=== PATIENT | male | born 1945 | race Caucasian/White ===

== ENCOUNTER 2023-02-21 18:35 | Inpatient (IN) | payer OTHER ==
[~2023-02-21] VITALS: Ht 175.3 cm; Wt 74.7 kg
[2023-02-21 19:36] LABS: Basophils # (auto) 0 10 ^3/uL (0-0.2); Basophils % (auto) 0.8 % (0.0-2.0); Eosinophils # (auto) 0.4 10 ^3/uL (0-0.8); Eosinophils % (auto) 7.6 % (0.0-7.0); Hematocrit 32.3 % (41.0-53.0); Lymphocytes # (auto) 0.8 10 ^3/uL (0.4-5.4); Lymphocytes % (auto) 15.1 % (10.0-50.0); Mean Corpuscular Hemoglobin 32.1 pg (28.0-32.0); Mean Corpuscular Volume 94.6 fL (80.0-100.0); Monocytes # (auto) 0.5 10 ^3/uL (0-1.3); Monocytes % (auto) 9.3 % (0.0-12.0); Neutrophils # (auto) 3.4 10 ^3/uL (1.6-8.6); Neutrophils % (auto) 67.2 % (37.0-80.0); Nucleated Red Blood Cells % 0.1 %; Red Blood Cells 3.41 10^6/uL (4.5-5.90); Red Cell Distribution Width 12.7 % (11.8-14.3)
[2023-02-21 19:49] LABS: Albumin 3.9 g/dL (3.4-5.0); Calcium 9.2 mg/dL (8.5-10.1)
[2023-02-21 19:52] LABS: BUN/Creatinine Ratio 19.4 (10.0-20.0); Bilirubin, Total 0.5 mg/dL (0.2-1.0); Total Protein 6.8 g/dL (6.4-8.2)
[2023-02-21 20:12] LABS: Potassium 5.9 mmol/L (3.5-5.1)
[2023-02-21] MEDS ORDERED: BUDESONIDE (INHALATION) 0.5 MG/2 ML NEB NEB ONE (20:30)
[2023-02-21] MEDS ORDERED: ALBUTEROL SULF 2.5 MG/0.5ML(0.5%) NEB SOLN NEB ONE (20:30)
[2023-02-21 21:26] LABS: INR 1.15 (0.9-1.15)
[2023-02-22 02:22] LABS: Urine Bacteria NONE SEEN /hpf (None Seen); Urine Blood Negative /uL (Negative); Urine Hyaline Cast FEW /lpf (0 - 2); Urine Specific Gravity 1.015 (1.001-1.035); Urine WBC 1 /hpf (0 - 3)
[2023-02-22] MEDS ORDERED: CALCIUM GLUC 1,000mg/50ml-NS 50 ML IV ONE (02:30)
[2023-02-22] MEDS ORDERED: FUROSEMIDE 40 MG/4 ML VIAL IV ONE (02:30)
[2023-02-22] MEDS ORDERED: DOCUSATE SOD 100 MG CAP PO PRN (03:15)
[2023-02-22] MEDS ORDERED: HYDROcodone-ACET 5/325MG TAB PO PRN (03:15)
[2023-02-22] MEDS ORDERED: ONDANSETRON HCL 4 MG/2 ML VIAL IV PRN (03:15)
[2023-02-22] MEDS ORDERED: ACETAMINOPHEN 325 MG TAB PO PRN (03:15)
[2023-02-22 03:59] VITALS: BP 117/54
[2023-02-22 04:50] LABS: Basophils # (auto) 0 10 ^3/uL (0-0.2); Basophils % (auto) 0.6 % (0.0-2.0); Eosinophils # (auto) 0.4 10 ^3/uL (0-0.8); Eosinophils % (auto) 7.2 % (0.0-7.0); Hematocrit 29.8 % (41.0-53.0); Hemoglobin 10.6 g/dL (13.5-17.5); Lymphocytes # (auto) 1.2 10 ^3/uL (0.4-5.4); Lymphocytes % (auto) 23.4 % (10.0-50.0); Mean Corpuscular Hemoglobin 32.5 pg (28.0-32.0); Mean Corpuscular Hgb Conc. 35.4 g/dL (32.0-36.0); Mean Corpuscular Volume 91.6 fL (80.0-100.0); Monocytes # (auto) 0.4 10 ^3/uL (0-1.3); Monocytes % (auto) 7.8 % (0.0-12.0); Red Blood Cells 3.26 10^6/uL (4.5-5.90); Red Cell Distribution Width 12.5 % (11.8-14.3); White Blood Cell 4.9 10^3/uL (4.4-10.8)
[2023-02-22 05:06] LABS: Albumin 3.9 g/dL (3.4-5.0); BUN/Creatinine Ratio 21.7 (10.0-20.0); Calcium 9.3 mg/dL (8.5-10.1); Potassium 4.8 mmol/L (3.5-5.1)
[2023-02-22 05:08] LABS: Bilirubin, Total 0.6 mg/dL (0.2-1.0)
[2023-02-22] MEDS ORDERED: InsuLIN REG 1unit/0.01ml Soln (100units/ml) IV ONE (05:45)
[2023-02-22] MEDS ORDERED: DEXTROSE (50%) 50ML SYRG IV ONE (05:45)
[2023-02-22] MEDS ORDERED: ALBUTEROL SULF 2.5 MG/0.5ML(0.5%) NEB SOLN NEB ONE (05:45)
[2023-02-22] MEDS ORDERED: SODIUM BICARBONATE 8.4% INJ 50ML SYRINGE IV ONE (05:45)
[2023-02-22] MEDS ORDERED: MORPHINE SULFATE INJ 2 MG/ml SYRG IV PRN (06:00)
[2023-02-22] MEDS ORDERED: NITROGLYCERIN 0.4 MG SL TAB SL PRN (06:00)
[2023-02-22] MEDS: SODIUM CHLORIDE 0.9% 1,000 ML IV SCH ×2 (07:46→17:22)
[2023-02-22] MEDS ORDERED: FUROSEMIDE 20 MG/2 ML VIAL IV SCH (10:00)
[2023-02-22] MEDS ORDERED: FAMOTIDINE (10MG/ML) 2ML VL IV SCH (10:00)
[2023-02-22] MEDS: ALBUTEROL SULF 2.5 MG/0.5ML(0.5%) NEB SOLN NEB PRN ×2 (10:21→21:36)
[2023-02-22] MEDS: ASPirin 81 mg TAB PO SCH (11:00)
[2023-02-22 14:49] VITALS: BP 134/65
[2023-02-22] MEDS ORDERED: IBUP800T26 PO (15:07)
[2023-02-22] MEDS ORDERED: LOSA-39 PO ×2 (15:07→18:46)
[2023-02-22] MEDS ORDERED: ALBU0.08 NEB (15:07)
[2023-02-22] MEDS ORDERED: TERA1CAP33 PO ×2 (15:07→18:46)
[2023-02-22] MEDS ORDERED: LORA-655 (15:07)
[2023-02-22] MEDS ORDERED: HYDR1TAB97 PO (15:07)
[2023-02-22] MEDS ORDERED: ALBU108A5 INH (15:07)
[2023-02-22] MEDS ORDERED: METO25TA93 PO (15:07)
[2023-02-22] MEDS ORDERED: LEV88T PO (15:07)
[2023-02-22] MEDS ORDERED: ATOR10TA52 PO (15:07)
[2023-02-22] MEDS ORDERED: OMEP-260 PO (15:07)
[2023-02-22] MEDS ORDERED: SPIR50TA5 PO ×2 (15:07→18:46)
[2023-02-22] MEDS ORDERED: TIOTCAP IN (15:10)
[2023-02-22 16:49] VITALS: BP 134/65
[2023-02-22] MEDS: Ensure Pudding Vanilla 4 oz Cup PO SCH (18:11)
[2023-02-22] MEDS ORDERED: METO25TA5 PO (18:46)
[2023-02-22] MEDS ORDERED: SUMA100T15 PO (19:39)
[2023-02-22 20:00] VITALS: BP 118/50
[2023-02-22 22:00] VITALS: BP 118/50
[2023-02-23] MEDS: ALBUTEROL SULF 2.5 MG/0.5ML(0.5%) NEB SOLN NEB PRN (03:14)
[2023-02-23 05:00] VITALS: BP 119/60
[2023-02-23 05:42] LABS: Basophils # (auto) 0.1 10 ^3/uL (0-0.2); Basophils % (auto) 0.9 % (0.0-2.0); Eosinophils # (auto) 0.3 10 ^3/uL (0-0.8); Eosinophils % (auto) 3.1 % (0.0-7.0); Hematocrit 37.7 % (41.0-53.0); Lymphocytes # (auto) 1.4 10 ^3/uL (0.4-5.4); Lymphocytes % (auto) 16.2 % (10.0-50.0); Mean Corpuscular Hemoglobin 31.3 pg (28.0-32.0); Mean Corpuscular Hgb Conc. 34.4 g/dL (32.0-36.0); Mean Corpuscular Volume 90.9 fL (80.0-100.0); Monocytes # (auto) 1.1 10 ^3/uL (0-1.3); Monocytes % (auto) 12.1 % (0.0-12.0); Neutrophils % (auto) 67.7 % (37.0-80.0); Nucleated Red Blood Cells % 0.7 %; Red Blood Cells 4.14 10^6/uL (4.5-5.90); Red Cell Distribution Width 15.6 % (11.8-14.3); White Blood Cell 8.8 10^3/uL (4.4-10.8)
[2023-02-23 05:52] LABS: Albumin 3.6 g/dL (3.4-5.0); BUN/Creatinine Ratio 3.9 (10.0-20.0); Calcium 9.2 mg/dL (8.5-10.1); Potassium 4.6 mmol/L (3.5-5.1)
[2023-02-23 05:55] LABS: Bilirubin, Total 0.6 mg/dL (0.2-1.0); Total Protein 8.2 g/dL (6.4-8.2)
[2023-02-23] MEDS: SODIUM CHLORIDE 0.9% 1,000 ML IV SCH ×2 (07:30→17:30)
[2023-02-23] MEDS ORDERED: LIDOCAINE 2% JELLY 11ml (GLYDO) UR ONE (07:45)
[2023-02-23 08:30] VITALS: BP 142/70
[2023-02-23] MEDS: ALPRAZolam 0.5 MG TAB PO PRN ×2 (08:34→16:55)
[2023-02-23] MEDS: Ensure Pudding Vanilla 4 oz Cup PO SCH ×3 (09:14→16:55)
[2023-02-23] MEDS ORDERED: FAMOTIDINE (10MG/ML) 2ML VL IV SCH (10:00)
[2023-02-23] MEDS: ASPirin 81 mg TAB PO SCH (10:00)
[2023-02-23 12:30] VITALS: BP 154/75
[2023-02-23 13:11] LABS: BUN/Creatinine Ratio 20.2 (10.0-20.0); Calcium 9.1 mg/dL (8.5-10.1); Potassium 5.1 mmol/L (3.5-5.1)
[2023-02-23 17:18] VITALS: BP 110/70
[2023-02-23] MEDS ORDERED: TAMSULOSIN HYDROCHLORIDE 0.4 MG CAP PO SCH (18:00)
[2023-02-23] MEDS ORDERED: FINASTERIDE 5 MG TAB PO SCH (18:00)
[2023-02-23 22:00] VITALS: BP 135/65
[2023-02-24] MEDS: ALBUTEROL SULF 2.5 MG/0.5ML(0.5%) NEB SOLN NEB PRN ×2 (00:43→16:25)
[2023-02-24] MEDS: SODIUM CHLORIDE 0.9% 1,000 ML IV SCH ×2 (03:30→13:30)
[2023-02-24 05:00] VITALS: BP 110/52
[2023-02-24 06:22] LABS: Calcium 9.1 mg/dL (8.5-10.1); Potassium 4.9 mmol/L (3.5-5.1)
[2023-02-24 06:25] LABS: BUN/Creatinine Ratio 17.6 (10.0-20.0)
[2023-02-24 08:00] VITALS: BP 162/44
[2023-02-24] MEDS: Ensure Pudding Vanilla 4 oz Cup PO SCH ×2 (08:00→11:47)
[2023-02-24 09:00] VITALS: BP 102/44
[2023-02-24] MEDS: ASPirin 81 mg TAB PO SCH (09:34)
[2023-02-24] MEDS: ALPRAZolam 0.5 MG TAB PO PRN (09:38)
[2023-02-24 12:06] LABS: Hepatitis C Antibody Negative (Negative)
[2023-02-24 13:00] VITALS: BP 118/63
[2023-02-24] MEDS ORDERED: FINA5TAB4 PO (13:44)
[2023-02-24] MEDS ORDERED: TAM04C PO (13:44)
[2023-02-24 17:07] VITALS: BP 126/56
[2023-02-24 17:44] VITALS: BP 126/56
[2023-02-25] MEDS ORDERED: CIPR500T4 PO (12:37)
== END 2023-02-24 17:55 | disposition home or self-care (01) | DRG 683 ==
LOC: ER 18:35 → TELE 02-22 05:59 → TELE-EAST 02-22 14:47
PROVIDERS: ADMIT Nurse Practitioner Family; ATTEND Hospitalist
DX: N17.9 Acute kidney failure, unspecified (principal); N13.8 Other obstructive and reflux uropathy; E87.5 Hyperkalemia; J44.9 Chronic obstructive pulmonary disease, unspecified; N40.1 Benign prostatic hyperplasia with lower urinary tract symptoms; I95.9 Hypotension, unspecified; N20.0 Calculus of kidney; I10 Essential (primary) hypertension; Z20.822 Contact with and (suspected) exposure to COVID-19
CPT/HCPCS: 36415; 71045; 76775; 80048; 80053; 81001; 83605; 83880; 84484; 85025; 85379; 85610; 85730; 86803; 87040; 87340; 87426; 93005; 94640; 97116; 97163; 97530; G0378; J3490

== ENCOUNTER 2023-02-25 10:33 | Emergency (ER) | payer BC, OTHER ==
[~2023-02-25] VITALS: Ht 175.3 cm; Wt 71.3 kg
[~2023-02-25 10:33] MED LIST: ALBU0.08 NEB; ALBU108A5 INH; ATOR10TA52 PO; FINA5TAB4 PO; IBUP800T26 PO; LEV88T PO; LOSA-39 PO; METO25TA5 PO; SUMA100T15 PO; TAM04C PO; TERA1CAP33 PO; TIOTCAP IN
[2023-02-25 11:39] VITALS: BP 98/39
[2023-02-25] MEDS ORDERED: CIPR500T4 PO (12:37)
== END 2023-02-25 13:06 | disposition home or self-care (01) ==
LOC: ER 10:33
DX: T83.038A Leakage of other urinary catheter, initial encounter (principal); N39.0 Urinary tract infection, site not specified; I10 Essential (primary) hypertension; J44.9 Chronic obstructive pulmonary disease, unspecified; Z79.899 Other long term (current) drug therapy; Z88.6 Allergy status to analgesic agent
CPT/HCPCS: 51702

== ENCOUNTER → 2023-02-26 | Emergency (ER) | payer BC, OTHER ==
[~2023-02-26] MED LIST changes: +CIPR500T4 PO
== END | disposition left against medical advice (07) ==
LOC: ER 20:00
DX: T83.098A Other mechanical complication of other urinary catheter, initial encounter (principal); Z53.21 Procedure and treatment not carried out due to patient leaving prior to being seen by health care provider

== ENCOUNTER 2023-09-17 12:38 | Inpatient (IN) | payer BC, OTHER ==
[~2023-09-17] VITALS: Ht 175.3 cm; Wt 82.0 kg
[~2023-09-17 12:38] MED LIST changes: +IBUP-1455 PO; -IBUP800T26 PO; -LEV88T PO; +LEVO-177 PO; -LOSA-39 PO; +LOSA100T58 PO; -TAM04C PO; +TAMS-35 PO
[2023-09-17 12:50] VITALS: BP 163/69; RESP 18; O2SAT 93
[2023-09-17] MEDS ORDERED: ASPirin 325 MG TAB PO ONE (13:15)
[2023-09-17 13:32] LABS: Basophils # (auto) 0 10 ^3/uL (0-0.2); Basophils % (auto) 0.6 % (0.0-2.0); Eosinophils # (auto) 0.4 10 ^3/uL (0-0.8); Eosinophils % (auto) 5.5 % (0.0-7.0); Hematocrit 37.9 % (41.0-53.0); Hemoglobin 12.4 g/dL (13.5-17.5); Lymphocytes # (auto) 0.4 10 ^3/uL (0.4-5.4); Lymphocytes % (auto) 5.4 % (10.0-50.0); Mean Corpuscular Hemoglobin 30.7 pg (28.0-32.0); Mean Corpuscular Hgb Conc. 32.7 g/dL (32.0-36.0); Monocytes # (auto) 0.4 10 ^3/uL (0-1.3); Monocytes % (auto) 6.3 % (0.0-12.0); Neutrophils # (auto) 5.6 10 ^3/uL (1.6-8.6); Neutrophils % (auto) 82.2 % (37.0-80.0); Red Blood Cells 4.03 10^6/uL (4.5-5.90); Red Cell Distribution Width 14.9 % (11.8-14.3); White Blood Cell 6.8 10^3/uL (4.4-10.8)
[2023-09-17 13:36] VITALS: PULSE 90
[2023-09-17 13:36] LABS: Alanine Aminotransferase 24 U/L (7-40); Albumin 4.6 g/dL (3.2-4.8); Alkaline Phosphatase 61 U/L (46-116); Anion Gap 7 (5-15); Aspartate Aminotransferase 27 U/L (13-40); BUN/Creatinine Ratio 9.5 (10.0-20.0); Blood Urea Nitrogen 15 mg/dL (9-23); Calcium 9.4 mg/dL (8.5-10.1); Carbon Dioxide 30 mmol/L (20-30); Chloride 104 mmol/L (98-107); Glucose 119 mg/dL (74-106); Potassium 4.4 mmol/L (3.5-5.1); Sodium 141 mmol/L (136-145)
[2023-09-17 13:37] LABS: Bilirubin, Total 1.2 mg/dL (0.2-1.0); Total Protein 6.8 g/dL (5.7-8.2)
[2023-09-17 13:54] LABS: INR 1.18 (0.9-1.15); Partial Thromboplastin Time 27.6 SEC (24.5-34.5); Prothrombin Time 12.3 sec (9.3-11.8)
[2023-09-17] MEDS ORDERED: MORPHINE SULFATE INJ 2 MG/ml SYRG IV PRN (19:30)
[2023-09-17] MEDS ORDERED: ACETAMINOPHEN 325 MG TAB PO PRN (19:30)
[2023-09-17] MEDS ORDERED: DOCUSATE SOD 100 MG CAP PO PRN (19:30)
[2023-09-17] MEDS ORDERED: NITROGLYCERIN 0.4 MG SL TAB SL PRN (19:30)
== END 2023-09-17 20:35 | disposition left against medical advice (07) | DRG 313 ==
LOC: ER 12:38 → TELE 19:20
PROVIDERS: ADMIT Nurse Practitioner Family; ATTEND Nurse Practitioner Family
DX: R07.9 Chest pain, unspecified (principal); J44.9 Chronic obstructive pulmonary disease, unspecified; N40.0 Benign prostatic hyperplasia without lower urinary tract symptoms; I10 Essential (primary) hypertension; Z79.899 Other long term (current) drug therapy
CPT/HCPCS: 36415; 70450; 71045; 80053; 83605; 84484; 85025; 85610; 85730; 87040; 93005; G0378

== ENCOUNTER 2025-04-29 01:20 | Inpatient (IN) | payer BC, OTHER ==
[2025-04-29] VITALS (17 sets, daily range): BP systolic 122–159; BP diastolic 65–73; PULSE 54–76; RESP 10–18; TEMP 97–98.9; O2SAT 93–100
[~2025-04-29] VITALS: Ht 175.3 cm; Wt 85.5 kg
[~2025-04-29 01:20] MED LIST changes: +LOSA-535 PO; -LOSA100T58 PO; -TERA1CAP33 PO; +TERA1CAP52 PO
[2025-04-29] MEDS: SODIUM CHLORIDE 0.9% 1,000 ML IV ONE ×2 (01:30→03:15)
[2025-04-29] MEDS: MECLIZINE HCL 25 MG TAB PO ONE (01:30)
--- NOTE | 2025-04-29 01:41 | ED.PDOC ---
History of Present Illness HPI Comments 79-year-old male who came to ER via EMS for dizziness. Patient has history of hypertension, COPD and vertigo. At about 12 midnight, started having dizziness, progressively worsening, associated with photophobia, nausea and vomiting. Denies any headaches or fever. Blood pressure upon arrival was 164/82 mm Hg, blood sugar of 119. Chief Complaint: Dizziness Time Seen by MD: 01:40 Primary Care Provider: NAOMY Reviewed Notes: Pier Hand Helper Notes Allergies: Coded Allergies: NO KNOWN ALLERGIES (Unverified , 02/21/23) Home Meds Active Scripts Ciprofloxacin Hcl (Ciprofloxacin Hcl) 500 Mg Tab, 500 MG PO BID for 7 Days, #14 TAB 0 Refills Prov:VENICE PHAM CONSTRUCTION SITE MANAGER 02/25/23 Finasteride (Finasteride) 5 Mg Tab, 1 TAB PO DAILY, #60 TAB 1 Refill Prov:ESTEBAN DE LA PAZ MD 02/24/23 Tamsulosin Hcl (Flomax) 0.4 Mg Cap, 1 CAP PO QPM, #60 CAP Prov:ESTEBAN DE LA PAZ MD 02/24/23 Reported Medications Sumatriptan Succinate (Sumatriptan Succinate) 100 Mg Tab, 100 MG PO Q4HP, MG 02/22/23 Terazosin Hcl (Terazosin Hcl) 1 Mg Cap, 1 MG PO HS for 30 Days, MG 02/22/23 Metoprolol Tartrate (Metoprolol Tartrate) 25 Mg Tab, 25 MG PO BID for 30 Days, MG 02/22/23 Losartan Potassium (Losartan Potassium) 100 Mg Tab, 100 MG PO DAILY for 30 Days, MG 02/22/23 Tiotropium [place] Monohydrate (Spiriva Handihaler) 18 Mcg Cap, 18 MCG IN, CAP 02/22/23 Albuterol Sulfate (Albuterol Sulfate) 0.083 % Neb, 1 AER NEB Q4HP 02/22/23 Atorvastatin Calcium (ATORVASTATIN CALCIUM) 10 Mg Tab, 1 TAB PO DAILY 02/22/23 Ibuprofen Micronized (Ibuprofen) 800 Mg Tab, 1 TAB PO Q6HPRN PRN for mild pain 02/22/23 Levothyroxine Sodium (Levothyroxine Sodium) 88 Mcg Tab, 1 TAB PO DAILY 02/22/23 Albuterol Sulfate (Albuterol Sulfate Hfa) 108 Mcg/Act Aer, INH 02/22/23 Information Source: Patient, Emergency Med Personnel Mode of Arrival: EMS Severity: Moderate Timing: Hours Duration: Since onset Review of Systems REVIEW OF SYSTEMS: No fever, no chills, or fatigue HEENT: No sore throat, no earache, no congestion, no neck pain. Cardiac: No chest pain. No palpitations. Lungs: No shortness of breath, no cough. GI: (+) nausea, (+) vomiting, no diarrhea, no constipation, no abdominal pain : No dysuria, frequency, or urgency. No hematuria. Musculoskeletal: No joint pain , no joint swelling, no extremity edema. Skin: No rash, no itching. Neuro: No headache, (+) dizziness, no weakness Vital Signs Vital Signs Date Time Temp Pulse Resp B/P (MAP) Pulse Ox O2 Delivery O2 Flow Rate FiO2 04/29/25 02:58 97 Nasal Cannula* 3 32 04/29/25 02:29 98.9 54 10 143/68 (93) 98.9 Physical Exam General: Awake, alert and oriented. No acute distress. Skin: Skin in warm, dry and intact. Appropriate color for ethnicity. Nailbeds pink with no cyanosis. HEENT: The head is normocephalic and atraumatic. Conjunctivae are clear without exudates or hemorrhage. Sclera is non-icteric. EOM are intact. PERRLA No signs of nystagmus. Eyelids are normal in appearance without swelling or lesions. Oral mucosa is pink and moist Neck: The neck is supple with normal range of motion. No JVD. Cardiac: Heart rate and rhythm are normal. No murmurs, gallops, or rubs are auscultated. Respiratory: No signs of respiratory distress. Lung sounds are clear in all lobes bilaterally without rales, rhonchi, or wheezes. Abdominal: Abdomen is soft, non-tender without distention. Bowel sounds are present and normoactive in all four quadrants. Extremities: Upper and lower extremities are atraumatic in appearance without deformity or edema. Neurological: The patient is awake, alert and oriented to person, place, and time with normal speech. Speech is clear. There is no facial asymmetry. No upper or lower extremity drift. Psychiatric: Appropriate mood and affect. Good judgement and insight. No visual or auditory hallucinations. Past Medical History PAST MEDICAL HISTORY: COPD, HTN Past Medical History (Other): Vertigo Surgical History: Denies all surgeries Family History Family History: Reviewed,noncontributory to illness Social History Smoker: Non-Smoker Alcohol: Denies ETOH Use Drugs: Denies Drug Use Lives In: Home Was a procedure done? Was a procedure done?: No EKG EKG : Pulse Rate (adult): 52 Cardiac Rhythm: NSR Comments No STEMI Differential Dx Considerations may include: Differential diagnoses considered include but are not limited to cardiac str uctural disease, arrhythmia, acute coronary syndrome, orthostasis, pulmonary embolism, dissection, seizure, basilar stroke, other. X-Ray, Labs, Meds, VS Vital Signs Date Time Temp Pulse Resp B/P (MAP) Pulse Ox O2 Delivery O2 Flow Rate FiO2 04/29/25 02:58 97 Nasal Cannula* 3 32 04/29/25 02:29 98.9 54 10 143/68 (93) 92 98.9 04/29/25 01:41 52 04/29/25 01:25 97.6 54 22 164/80 (108) 94 97.6 Lab Test 04/29/25 02:49 04/29/25 01:41 Range/Units Troponin I High Sensitivity Pending 4 </=54 ng/L White Blood Count 4.4 4.4-10.8 10^3/uL Red Blood Count 3.63 L 4.5-5.90 10^6/uL Hemoglobin 11.8 L 13.5-17.5 g/dL Hematocrit 34.2 L 41.0-53.0 % Mean Corpuscular Volume 94.3 80.0-100.0 fL Mean Corpuscular Hemoglobin 32.5 H 28.0-32.0 pg Mean Corpuscular Hemoglobin Concent 34.5 32.0-36.0 g/dL Red Cell Distribution Width 14.1 11.8-14.3 % Platelet Count 134 L 140-450 10^3/uL Mean Platelet Volume 8.0 6.9-10.8 fL Neutrophils (%) (Auto) 54.7 37.0-80.0 % Lymphocytes (%) (Auto) 27.7 10.0-50.0 % Monocytes (%) (Auto) 5.7 0.0-12.0 % Eosinophils (%) (Auto) 11.2 H 0.0-7.0 % Basophils (%) (Auto) 0.7 0.0-2.0 % Neutrophils # (Auto) 2.4 1.6-8.6 10 ^3/uL Lymphocytes # (Auto) 1.2 0.4-5.4 10 ^3/uL Monocytes # (Auto) 0.3 0-1.3 10 ^3/uL Eosinophils # (Auto) 0.5 0-0.8 10 ^3/uL Basophils # (Auto) 0 0-0.2 10 ^3/uL Nucleated Red Blood Cells 0.0 % Sodium Level 136 136-145 mmol/L Potassium Level 3.9 3.5-5.1 mmol/L Chloride Level 99 98-107 mmol/L Carbon Dioxide Level 27 20-31 mmol/L Anion Gap 10 5-15 Blood Urea Nitrogen 17 9-23 mg/dL Creatinine 2.05 H 0.700-1.30 mg/dL Glomerular Filtration Rate Calc 33 >90 mL/min BUN/Creatinine Ratio 8.3 L 10.0-20.0 Serum Glucose 111 H 74-106 mg/dL Calcium Level 9.6 8.7-10.4 mg/dL Total Bilirubin 0.7 0.2-1.0 mg/dL Aspartate Amino Transferase (AST) 80 H 0-34 U/L Alanine Aminotransferase (ALT) 62 H 7-40 U/L Alkaline Phosphatase 58 46-116 U/L B-Type Natriuretic Peptide 12.84 0-100 pg/mL Total Protein 6.7 5.7-8.2 g/dL Albumin 4.6 3.2-4.8 g/dL Current Medications Medications (Trade) Dose Ordered Sig/Rand Route Start Time Stop Time Status Last Admin Meclizine HCl (Antivert Tablet) 50 mg ONCE ONCE PO 04/29/25 01:30 04/29/25 01:31 DC 04/29/25 01:30 Sodium Chloride 1,000 ml @ 1,000 mls/hr Q1H ONCE IV 04/29/25 01:30 04/29/25 02:29 DC 04/29/25 01:30 Time of 1ST Reevaluation: 01:33 Reevaluation 1ST: Unchanged Patient Education/Counseling: Prognosis Family Education/Counseling: No Family Present Departure 1 Departure Time of Disposition: 02:52 Impression: Primary Impression: Dizziness Additional Impressions: Hypertension Anemia MICHELLE (acute kidney injury) Disposition: 09 ADMITTED INPATIENT Condition: Stable Comments Patient admitted to hospitalist service for further treatment, evaluation and monitoring. Critical Care Note Critical Care Time?: No Stability Stability form required: No Heart Score Heart Score: Heart Score Response (Comments) Value History N/A 0 EKG N/A 0 Age N/A 0 Risk Factors N/A 0 Troponin N/A 0 Total 0 I personally scribed for YOAV MCKENZIE MD ([email or web address]) on 04/29/25 at 01:41. Electronically submitted by Gumaro Flores ([employer]). I personally scribed for YOAV MCKENZIE MD ([email or web address]) on 04/29/25 at 03:08. Electronically submitted by Gumaro Flores ([employer]). YOAV MCKENZIE MD Apr 29, 2025 01:41
[2025-04-29 01:57] LABS: Basophils # (auto) 0 10 ^3/uL (0-0.2); Basophils % (auto) 0.7 % (0.0-2.0); Eosinophils # (auto) 0.5 10 ^3/uL (0-0.8); Eosinophils % (auto) 11.2 % (0.0-7.0); Hematocrit 34.2 % (41.0-53.0); Hemoglobin 11.8 g/dL (13.5-17.5); Lymphocytes # (auto) 1.2 10 ^3/uL (0.4-5.4); Lymphocytes % (auto) 27.7 % (10.0-50.0); Mean Corpuscular Hemoglobin 32.5 pg (28.0-32.0); Mean Corpuscular Hgb Conc. 34.5 g/dL (32.0-36.0); Mean Corpuscular Volume 94.3 fL (80.0-100.0); Monocytes # (auto) 0.3 10 ^3/uL (0-1.3); Monocytes % (auto) 5.7 % (0.0-12.0); Neutrophils # (auto) 2.4 10 ^3/uL (1.6-8.6); Neutrophils % (auto) 54.7 % (37.0-80.0); Platelet Count (auto) 134 10^3/uL (140-450); Red Blood Cells 3.63 10^6/uL (4.5-5.90); Red Cell Distribution Width 14.1 % (11.8-14.3); White Blood Cell 4.4 10^3/uL (4.4-10.8)
[2025-04-29 02:07] LABS: Anion Gap 10 (5-15); Calcium 9.6 mg/dL (8.7-10.4); Carbon Dioxide 27 mmol/L (20-31); Chloride 99 mmol/L (98-107); Potassium 3.9 mmol/L (3.5-5.1); Sodium 136 mmol/L (136-145)
[2025-04-29 02:13] LABS: Albumin 4.6 g/dL (3.2-4.8); Alkaline Phosphatase 58 U/L (46-116); BUN/Creatinine Ratio 8.3 (10.0-20.0); Bilirubin, Total 0.7 mg/dL (0.2-1.0); Blood Urea Nitrogen 17 mg/dL (9-23); Total Protein 6.7 g/dL (5.7-8.2)
[2025-04-29 02:53] LABS: Alanine Aminotransferase 62 U/L (7-40); Aspartate Aminotransferase 80 U/L (0-34); Glucose 111 mg/dL (74-106)
--- NOTE | 2025-04-29 03:10 | DVH ---
CHEST RADIOGRAPH Indication: dizzy Technique: Single frontal view of the chest was obtained Comparison: XY CHEST PORTABLE on DOS: 09/17/23, XY CHEST PORTABLE on DOS: 02/21/23 IMPRESSION: Heart appears prominent in size. The lungs appear clear without focal airspace opacity, effusion, or pneumothorax
--- NOTE | 2025-04-29 06:02 | ECG ---
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
[2025-04-29] MEDS: LEVOTHYROXINE SODIUM 88 MCG TAB PO SCH (06:06)
--- NOTE | 2025-04-29 06:13 | DVHHPRES ---
History of Present Illness Resident Creating Document: RAMONITAMAXIMUS RESIDENT History of Present Illness Patient is a 79-year-old male with a past medical history of COPD, hypertension, BPH, hypothyroidism presented to the ED with a chief complaint of dizziness. Patient reports that since the last 2 years he has been having episodes of dizziness where he would feel the sensation of spinning held was worse when he tries to get up from a lying or sitting position to standing. Patient reported that those episodes were intermittent and he would feel fine after a while but this time yesterday night episode of dizziness, severe, associated with nausea following which he was brought to the hospital by his for further evaluation. Patient denied any blurred vision, headache, no episode of loss of consciousness. Patient has a history of COPD with functional class 3 shortness of the breath and is following up with the primary care provider, has inhalers S piriva which he uses on and off and albuterol rescue inhaler. Patient denied any chest pain, palpitations during the episode of dizziness. Past medical history: COPD, hypertension, BPH Past surgical history: None Social history: Patient is an ex-smoker quit 4 years ago, denied current smoking, alcohol, drug use Home medications: As per the records patient is taking losartan 50 mg, terazosin 1 mg, tamsulosin 0.4 mg, med succinate 25 mg daily, finasteride 5 mg, levothyroxine 88 mcg Review of Systems Review of Systems Patient seen and examined with the bedside Denies any dizziness, shortness of breath while at rest without any oxygen, headache, nausea or vomiting Denies any chest pain Allergies: Coded Allergies: NO KNOWN ALLERGIES (Unverified , 02/21/23) Medications Current Medications Medications Dose Ordered Sig/Rand Route Start Time Stop Time Status Last Admin Dose Admin Albuterol 2.5 mg Q8HR NEB 04/29/25 06:00 Ipratropium [place] 0.5 mg Q8HR NEB 04/29/25 06:00 Tamsulosin HCl 0.4 mg QPM PO 04/29/25 18:00 Finasteride 5 mg DAILY PO 04/29/25 10:00 Levothyroxine Sodium 88 mcg QAM@0600 PO 04/29/25 06:00 Amlodipine Besylate 5 mg DAILY PO 04/29/25 10:00 Exam Vital Signs Vital Signs Date Time Temp Pulse Resp B/P (MAP) Pulse Ox O2 Delivery O2 Flow Rate FiO2 04/29/25 02:58 54 10 97 Nasal Cannula* 3 32 04/29/25 02:29 98.9 143/68 (93) 98.9 Exam Gen - no pallor, no icterus, no cyanosis, no clubbing, no LAD, no edema . Skin - Patients skin is warm and dry. HEENT - normocephalic, atraumatic, moist mucous membranes. Neck - full ROM, no LAD, no JVD Pulmonary - B/L diminished breath sounds, no wheezing heard, no stridor. cardiovascular - regular S1,S2 heard, no added sounds, no murmurs heard. peripheral pulses normal radial 2+, pedal 2+. GI - soft, nontender abdomen. no hepatospleenomegaly. Bowel sounds normoactive Neurological - Patient is A/O X 3. Bilateral upper extremity strength 4/5, bilateral lower extremity strength 4/5, no facial droop, normal speech, no tremor, no sensory deficiets. Labs/Xrays Labs Test 04/29/25 04:52 04/29/25 04:12 04/29/25 01:41 Range/Units Troponin I High Sensitivity 5 </=54 ng/L Blood Gas Specimen Type Arterial Blood Gas Sample Site Left radial Blood Gas Patient Temperature 37.0 Arterial Blood Date Drawn [id number] Arterial Blood pH 7.404 7.350-7.450 Arterial Blood Partial Pressure CO2 40.4 35.0-48.0 mmHg Arterial Blood Partial Pressure O2 67.6 L 83.0-108.0 mmHg Arterial Blood HCO3 24.7 21.0-28.0 mmol/L Arterial Blood Oxygen Saturation 91.9 L 94.0-98.0 % Arterial Blood Base Excess 0.0 -2.0-3.0 mmol/L Arterial Blood Oxyhemoglobin 90.9 L 94.0-98.0 % Arterial Blood Carboxyhemoglobin 0.6 0.5-1.5 % Arterial Blood Methemoglobin 0.5 0.0-1.5 % Ollie Test Yes Blood Gas Total Hemoglobin 12.50 L 13.5-17.5 g/dL Blood Gas Modality Room air FiO2 % 21.0 White Blood Count 4.4 4.4-10.8 10^3/uL Red Blood Count 3.63 L 4.5-5.90 10^6/uL Hemoglobin 11.8 L 13.5-17.5 g/dL Hematocrit 34.2 L 41.0-53.0 % Mean Corpuscular Volume 94.3 80.0-100.0 fL Mean Corpuscular Hemoglobin 32.5 H 28.0-32.0 pg Mean Corpuscular Hemoglobin Concent 34.5 32.0-36.0 g/dL Red Cell Distribution Width 14.1 11.8-14.3 % Platelet Count 134 L 140-450 10^3/uL Mean Platelet Volume 8.0 6.9-10.8 fL Neutrophils (%) (Auto) 54.7 37.0-80.0 % Lymphocytes (%) (Auto) 27.7 10.0-50.0 % Monocytes (%) (Auto) 5.7 0.0-12.0 % Eosinophils (%) (Auto) 11.2 H 0.0-7.0 % Basophils (%) (Auto) 0.7 0.0-2.0 % Neutrophils # (Auto) 2.4 1.6-8.6 10 ^3/uL Lymphocytes # (Auto) 1.2 0.4-5.4 10 ^3/uL Monocytes # (Auto) 0.3 0-1.3 10 ^3/uL Eosinophils # (Auto) 0.5 0-0.8 10 ^3/uL Basophils # (Auto) 0 0-0.2 10 ^3/uL Nucleated Red Blood Cells 0.0 % Sodium Level 136 136-145 mmol/L Potassium Level 3.9 3.5-5.1 mmol/L Chloride Level 99 98-107 mmol/L Carbon Dioxide Level 27 20-31 mmol/L Anion Gap 10 5-15 Blood Urea Nitrogen 17 9-23 mg/dL Creatinine 2.05 H 0.700-1.30 mg/dL Glomerular Filtration Rate Calc 33 >90 mL/min BUN/Creatinine Ratio 8.3 L 10.0-20.0 Serum Glucose 111 H 74-106 mg/dL Calcium Level 9.6 8.7-10.4 mg/dL Total Bilirubin 0.7 0.2-1.0 mg/dL Aspartate Amino Transferase (AST) 80 H 0-34 U/L Alanine Aminotransferase (ALT) 62 H 7-40 U/L Alkaline Phosphatase 58 46-116 U/L B-Type Natriuretic Peptide 12.84 0-100 pg/mL Total Protein 6.7 5.7-8.2 g/dL Albumin 4.6 3.2-4.8 g/dL Assessment/Plan Assessment/Plan Dizziness Probable BPPV Rule out cardiac cause Rule out neurological cause Rule out orthostatic hypotension - head CT pending - carotid Doppler pending - EKG pending - echocardiogram pending - IV fluids - given 1 dose of meclizine MICHELLE on CKD likely due to VMN - monitor electrolytes and kidney function - IV fluids COPD, no exacerbation - duo nebs q.8 hours - oxygen via nasal cannula as needed Hypertensive heart disease - on amlodipine 5 mg daily, had losartan due to MICHELLE Hypothyroidism - levothyroxine 88 mcg H/o Benign prostatic hyperplasia - continued on tamsulosin and finasteride PUD prophylaxis: Protonix DVT prophylaxis: Held because of low platelets Goals of care discussed with the patient and his at bedside for over 27 minutes. Full code Time spent: 43 minutes Plan discussed with Dr. Perez Plan discussed with: Patient, Spouse My Orders Orders - MAXIMUS SHIPMAN RESIDENT Procedure Category Date Status Time Admit ADMIT 04/29/25 Transmitted 05:13 Stat Ekg For Chest [facility] 04/29/25 In Process Pain 05:13 Notify Md Of Changes [facility] 04/29/25 In Process From Base 05:13 Rhythm Strips Once [facility] 04/29/25 In Process Every Shift 05:13 Oxygen By Nasal RT 04/29/25 Transmitted Cannula 05:13 Grout Machine Operator For [facility] 04/29/25 In Process 24 Hours 05:13 Emergency Dysrhythmia [facility] 04/29/25 In Process Protocol 05:13 Carotid Duplx W Color US 04/29/25 Logged DOP 05:13 Echo 2d Mode Cardiac US 04/29/25 Logged DOP 05:13 Albuterol Medneb PHA 04/29/25 In Process (Ventolin Medneb) 06:00 Ipratropium Medneb PHA 04/29/25 In Process (Atrovent Medneb) 06:00 Tamsulosin PHA 04/29/25 In Process Hydrochloride (Flomax) 18:00 Finasteride Tablet PHA 04/29/25 In Process (Proscar Tablet) 10:00 Levothyroxine Tablet PHA 04/29/25 In Process (Synthroid Tablet) 06:00 Amlodipine Tablet PHA 04/29/25 In Process (Norvasc Tablet) 10:00 Date of Service: Apr 29, 2025 Billing Provider: JAYSON PEREZ MD Common Visit Codes: 60105-[id number] INP/OBS CARE (HIGH) Secondary Visit Codes: [id number] CARE PLAN 30 MINUTES [employer] SHIPMAN RESIDENT Apr 29, 2025 06:13
[2025-04-29] MEDS: ALBUTEROL SULF 2.5 MG/0.5ML(0.5%) NEB SOLN NEB SCH ×2 (07:08→11:21)
[2025-04-29] MEDS: IPRATROPIUM BROM 0.5 MG/2.5ML INH SOL NEB SCH ×2 (07:08→11:21)
[2025-04-29] MEDS ORDERED: LOSA-534 PO (07:10)
[2025-04-29] MEDS: PANTOPRAZOLE 40 MG TAB PO ONE (07:22)
--- NOTE | 2025-04-29 08:47 | DVH ---
Carotid Duplex Date: 04/29/2025 07:21 AM Clinical History: r/o carotid stenosis Comparison: None Technique: Duplex Doppler evaluation of the extracranial carotid and vertebral arteries including col or Doppler and spectral/pulsed waveform analysis was performed. Findings: 50-69% stenosis right ICA. LEFT SIDE: Less than 50% stenosis left ICA/carotid bulb. Antegrade bilateral vertebral artery flow. IMPRESSION: N 50-69% stenosis right ICA. o hemodynamically significant stenosis noted in the right carotid system . No hemodynamically significant stenosis noted in the left carotid system. Reference: Radiology 2003; 229:[id number]
[2025-04-29] MEDS: FINASTERIDE 5 MG TAB PO SCH (10:25)
[2025-04-29] MEDS: amLODIPine BESYLATE 5 MG TAB PO SCH (10:26)
--- NOTE | 2025-04-29 10:28 | DVH ---
EXAM: CT HEAD WITHOUT CONTRAST INDICATION: dizziness TECHNIQUE: CT of the head without intravenous contrast. Radiation Dose Information: CT Dose: CTDI volume is 57.53 mGy. Dose-length product is 1018.27 mGy*cm The dose indicators for CT are the volume Computed Tomography (CT) Dose Index (CTDIvol) and the Dose Length Product (DLP), and are measured in units of mGy and mGy-cm, respectively. These indicators are not patient dose, but values generated from the CT scanner acquisition factors. The report includes radiation exposure data for exposures received during this examination. COMPARISON: CT HEAD WITHOUT CONTRAST on DOS: 09/17/23 FINDINGS: There is no evidence of acute intracranial hemorrhage, extra-axial collection, mass effect, midline s hift, herniation or hydrocephalus. The ventricles, sulci and cisterns are age appropriate. The liu-white differentiation is intact. Patchy periventricular and subcortical white matter hypoattenuation is nonspecific but may be related to small vessel ischemic disease. The visualized paranasal sinuses and mastoid air cells are clear. The surrounding soft tissues and osseous structures are unremarkable. IMPRESSION: No acute intracranial abnormality.
--- NOTE | 2025-04-29 11:08 | DVHPNRES ---
Progress Note Date Seen: Apr 29, 2025 Resident Creating Document: LUIS F WOODSON RESIDENT Medical Necessity Reason Pt with a Central, PICC or Fol: No Subjective Review of Systems Patient is a 79-year-old male with a past medical history of COPD, hypertension, BPH, hypothyroidism presented to the ED with a chief complaint of dizziness. Patient reports that since the last 2 years he has been having episodes of dizziness where he would feel the sensation of spinning held was worse when he tries to get up from a lying or sitting position to standing. Patient reported that those episodes were intermittent and he would feel fine after a while but this time yesterday night episode of dizziness, severe, associated with nausea following which he was brought to the hospital by his for further evaluation. Patient denied any blurred vision, headache, no episode of loss of consciousness. Patient has a history of COPD with functional class 3 shortness of the breath and is following up with the primary care provider, has inhalers Spiriva which he uses on and off and albuterol rescue inhaler. Patient denied any chest pain, palpitations during the episode of dizziness. Past medical history: COPD, hypertension, BPH Past surgical history: None Social history: Patient is an ex-smoker quit 4 years ago, denied current smoking, alcohol, drug use Home medications: As per the records patient is taking losartan 50 mg, terazosin 1 mg, tamsulosin 0.4 mg, med succinate 25 mg daily, finasteride 5 mg, levothyroxine 88 mcg PCP: richardson Patient seen and examined at the bedside. MR angio head and neck ordered, nephrology consulted, pole peeling machine operator consulted given symptomatic sinus bradycardia. Objective vital signs Vital Sign Date Time Temp Pulse Resp B/P (MAP) Pulse Ox O2 Delivery O2 Flow Rate FiO2 04/29/25 10:26 116/63 04/29/25 09:16 97.6 63 17 98 97.6 04/29/25 07:08 3.0 04/29/25 07:08 Nasal Cannula* 32 Total Intake and Output 04/28/25 04/28/25 04/29/25 15:00 23:00 07:00 Intake Total 1130 ml Balance 1130 ml medications Current Medications Medications Dose Ordered Sig/Rand Route Start Time Stop Time Status Last Admin Dose Admin Finasteride 5 mg DAILY PO 04/29/25 10:00 04/29/25 10:25 5 MG Levothyroxine Sodium 88 mcg QAM@0600 PO 04/29/25 06:00 04/29/25 06:06 88 MCG Amlodipine Besylate 5 mg DAILY PO 04/29/25 10:00 04/29/25 10:26 5 MG Pantoprazole Sodium 40 mg DAILY@0600 PO 04/30/25 06:00 Albuterol 2.5 mg Q6HR NEB 04/29/25 12:00 Ipratropium [place] 0.5 mg Q6HR NEB 04/29/25 12:00 Azithromycin 250 ml @ 125 mls/hr DAILY IV 04/30/25 10:00 Examination Elderly male patient lying in the bed, no acute distress General: Well-built, afebrile, mucosae are moist Cardiovascular: Bradycardia but Regular S1 and S2. No murmurs, gallops or rubs. No JVD elevation. No pedal edema Respiratory: Normal B/L air entry on room air. Clear lung sounds on auscultation Abdomen: Soft, nontender, nondistended, normoactive bowel sounds, no rebound tenderness, no organomegaly, no masses Genitourinary: Deferred MSK/skin: Mobilizes 4 limbs. Skin is dry and. Bilateral lower extremity or cold, feeble pulses Neurological: No motor, no sensitive deficits, normal speech. Pupils are isocoric and reactive. Psych/Mental Status: A/Ox3 laboratory and microbiology Laboratory Tests 04/29/25 01:41 Test 04/29/25 01:41 Range/Units Serum Glucose 111 H 74-106 mg/dL Labs and/or images reviewed: Labs reviewed by me, Image(s) reviewed by me Problem List/Assessment/Plan Problem List/Assessment/Plan Dizziness ? Symptomatic sinus bradycardia ? Polypharmacy ? BPPV Rule out cardiac cause Rule out neurological cause Rule out orthostatic hypotension - head CT unremarkable for acute intracranial pathology - carotid Doppler shows right-sided carotid stenosis - MR angio head and neck pending - EKG reviewed, shows sinus bradycardia - echocardiogram pending - IV fluids discontinued - given 1 dose of meclizine -cardiology consulted -orthostatic vitals pending Acute hypoxic respiratory failure secondary to COPD ? 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 Nonobstructing left renal stone measures 1.2 cm. -creatinine 2.05, GFR 33, behavior therapist consulted -follow up with urine electrolytes Anemia, likely Normocytic Monitor Ruled out PAD -Rule extremity duplex unremarkable Hypertensive heart disease - on amlodipine 5 mg daily, had losartan due to MICHELLE Hypothyroidism - levothyroxine 88 mcg H/o Benign prostatic hyperplasia - holding tamsulosin and finasteride given dizziness Protonix 40 mg daily Lovenox 40 mg sc daily Plan discussed with patient in which all questions have been answered Goals of care discussed for more than 22 minutes, full code status Case discussed with with Gagan Plan discussed with: Patient My Orders My Orders Orders - LUIS F WOODSON Procedure Category Date Status Time Bilat Low Ext Art US 04/29/25 Logged Duplex 10:37 Albuterol Medneb PHA 04/29/25 In Process (Ventolin Medneb) 12:00 Ipratropium Medneb PHA 04/29/25 In Process (Atrovent Medneb) 12:00 Azithromycin 500mg/ PHA 04/29/25 In Process 250ml (Zithromax 50 10:45 Azithromycin 500mg/ PHA 04/30/25 In Process 250ml (Zithromax 50 10:00 Urinalysis LAB 04/29/25 Logged 11:02 Urine LAB 04/29/25 Logged Protein/Creatinine Urine Sodium LAB 04/29/25 Logged 11:02 Kidney US 04/29/25 Logged 11:03 Date of Service: Apr 29, 2025 Billing Provider: DANIELLE BELTRAN MD Common Visit Codes: [id number] INP/OBS CARE(HIGH) Secondary Visit Codes: [id number] CARE PLAN 30 MINUTES LUIS F WOODSON Apr 29, 2025 11:08 DANIELLE BELTRAN MD Apr 30, 2025 22:13
--- NOTE | 2025-04-29 12:05 | DVH ---
INDICATION: nephrolithiasis. TECHNIQUE: Multiple real-time sonographic images of the kidneys and bladder were obtained. COMPARISON: None FINDINGS: RIGHT kidney measures 9.1 cm in length. Increased echogenicity. No hydronephrosis. LEFT kidney measures 11.1 cm in length. Increased echogenicity. Left renal cyst measures 1.6 cm. Nono bstructing stone in the left kidney measures 1.2 cm. No hydronephrosis. No large intraluminal masses are seen in the bladder. IMPRESSION: Increased echogenicity of bilateral kidneys may represent underlying chronic medical renal disease. Nonobstructing left renal stone measures 1.2 cm.
--- NOTE | 2025-04-29 12:14 | DVH ---
Indication: reports cyanosis, feeble pulses Technique: Real- time ultrasound images of the bilateral lower extremity with grayscale, color, and spectral wave Doppler. Comparison: None Findings: There are biphasic/ triphasic waveforms throughout the bilateral lower extremities. Peak systolic velocities are as follows (in cm/s): Right: Common femoral artery: 176 Profunda femoris: 101 Proximal superficial femoral: 116 Mid superficial femoral artery: 87 Distal superficial femoral artery: 100 Popliteal artery: 70 Posterior tibial artery: 66 Dorsalis pedis artery: 47 Left: Common femoral artery: 142 Profunda femoris: 89 Proximal superficial femoral: 87 Mid superficial femoral artery: 78 Distal superficial femoral artery: 66 Popliteal artery: 53 Posterior tibial artery: 38 Dorsalis pedis artery: 67 Impression: 1. No sonographic evidence for hemodynamically significant stenosis.
[2025-04-29] MEDS: AZITHROMYCIN 500MG/ 250ML 250 ML IV ONE (14:08)
--- NOTE | 2025-04-29 17:04 | DVHINCON2 ---
Date Seen: Apr 29, 2025 Referring Physician MD Andrew resident Reason for Consultation Dizziness, ? Symptomatic bradycardia History of Present Illness This is a 79-year-old male patient who presents to the emergency room with chief complaint of dizziness. The patient reports that he has been experiencing dizziness for the past two years. Yesterday, while at home, the patient reports he began to experience severe dizziness with associated nausea for which he decided to come to the emergency room for further evaluation. He denies any syncopal episodes. Initial twelve lead electrocardiogram reveals sinus bradycardia without any pauses or atrioventricular blocks. Serial troponin levels have been negative. The patient denies any chest pain, palpitations, or shortness of breath. The patient is a poor historian. Significant past medical history includes hypertension, COPD, thyroid disease, benign prostatic hyperplasia, tobacco use and obesity. He denies following a clinical quality assurance associate in the outpatient setting. Past Medical History Past medical history reviewed. No other significant than mentioned above. Past Surgical History Appendectomy Tonsillectomy Bilateral cataract removal Family History: FH: kidney failure G8 SISTER FH: suicide G8 MOTHER Family History Family history reviewed. Social History Patient has a 10 pack-year history, quit smoking approximately 40 years ago Denies any illicit drug use Denies any alcohol use Allergies: Coded Allergies: NO KNOWN ALLERGIES (Unverified , 02/21/23) Home Meds Active Scripts Tamsulosin Hcl (Flomax) 0.4 Mg Cap, 1 CAP PO QPM, #60 CAP Prov:ESTEBAN DE LA PAZ MD 02/24/23 Reported Medications Losartan Potassium (Losartan Potassium) 50 Mg Tab, 1 TAB PO DAILY 04/29/25 Terazosin Hcl (Terazosin Hcl) 1 Mg Cap, 1 MG PO HS for 30 Days, MG 02/22/23 Metoprolol Tartrate (Metoprolol Tartrate) 25 Mg Tab, 25 MG PO BID for 30 Days, MG 02/22/23 Albuterol Sulfate (Albuterol Sulfate) 0.083 % Neb, 1 AER NEB Q4HP 02/22/23 Atorvastatin Calcium (ATORVASTATIN CALCIUM) 10 Mg Tab, 1 TAB PO DAILY 02/22/23 Albuterol Sulfate (Albuterol Sulfate Hfa) 108 Mcg/Act Aer, 2 PUFF INH Q4HP PRN for SHORTNESS OF BREATH 02/22/23 Home Meds Home medications reviewed. Current Medications Current Medications Medications (Trade) Dose Ordered Sig/Rand Route PRN Reason Start Time Stop Time Status Last Admin Albuterol (Ventolin Medneb) 2.5 mg Q8HR NEB 04/29/25 06:00 04/29/25 10:53 DC 04/29/25 07:08 Ipratropium [place] (Atrovent Medneb) 0.5 mg Q8HR NEB 04/29/25 06:00 04/29/25 10:54 DC 04/29/25 07:08 Tamsulosin HCl (Flomax) 0.4 mg QPM PO 04/29/25 18:00 04/29/25 10:48 DC Finasteride (Proscar Tablet) 5 mg DAILY PO 04/29/25 10:00 04/29/25 10:25 Levothyroxine Sodium (Synthroid Tablet) 88 mcg QAM@0600 PO 04/29/25 06:00 04/29/25 06:06 Amlodipine Besylate (Norvasc Tablet) 5 mg DAILY PO 04/29/25 10:00 04/29/25 10:26 Pantoprazole Sodium (Protonix Tablet) 40 mg DAILY@0600 PO 04/30/25 06:00 Albuterol (Ventolin Medneb) 2.5 mg Q6HR NEB 04/29/25 12:00 04/29/25 11:21 Ipratropium [place] (Atrovent Medneb) 0.5 mg Q6HR NEB 04/29/25 12:00 04/29/25 11:21 Azithromycin 250 ml @ 125 mls/hr DAILY IV 04/30/25 10:00 Review of Systems Constitutional: No symptom reported Ears, Nose, & Throat: No symptom reported Eyes: No symptom reported Neurological: Dizziness Pulmonary/Respiratory: No symptoms reported Cardiovascular: No symptom reported Gastrointestinal: No symptom reported Genitourinary: No symptom reported Musculoskeletal: No symptom reported Skin: No symptom reported Psychiatric: No symptom reported Endocrine: No symptom reported Hematologic/Lymphatic: No symptom reported Vital Signs Vital Signs Date Time Temp Pulse Resp B/P (MAP) Pulse Ox O2 Delivery O2 Flow Rate FiO2 04/29/25 15:10 98.1 65 18 137/68 (91) 97 98.1 04/29/25 11:21 Nasal Cannula 2.0 04/29/25 11:21 28 Physical Exam General Appearance: Cooperative. Well-developed. Well-nourished. No acute distress. Pulmonary/Respiratory: Clear, bilateral breaths sounds. Cardiovascular/Chest: Regular rate and rhythm. Peripheral Pulses: 2+ Radial (R). 2+ Radial (L). 2+ Pedal (R). 2+ Pedal (L) Abdominal Exam: Normal bowel sounds. Ankle Exam: Negative ankle edema Lower extremities: Negative lower extremity edema Neuro/Mental Status: A/OX4, coherent. Thoughts/Psych: Normal thought pattern. Appropriate mood and affect. Good judgment and insight. Appearance: No acute distress. Skin Exam: Normal inspection. Normal color. Warm and dry. Labs/Diagnostic Data Labs Test 04/29/25 04:52 04/29/25 04:12 04/29/25 01:41 Range/Units Troponin I High Sensitivity 5 </=54 ng/L Blood Gas Specimen Type Arterial Blood Gas Sample Site Left radial Blood Gas Patient Temperature 37.0 Arterial Blood Date Drawn [id number] Arterial Blood pH 7.404 7.350-7.450 Arterial Blood Partial Pressure CO2 40.4 35.0-48.0 mmHg Arterial Blood Partial Pressure O2 67.6 L 83.0-108.0 mmHg Arterial Blood HCO3 24.7 21.0-28.0 mmol/L Arterial Blood Oxygen Saturation 91.9 L 94.0-98.0 % Arterial Blood Base Excess 0.0 -2.0-3.0 mmol/L Arterial Blood Oxyhemoglobin 90.9 L 94.0-98.0 % Arterial Blood Carboxyhemoglobin 0.6 0.5-1.5 % Arterial Blood Methemoglobin 0.5 0.0-1.5 % Ollie Test Yes Blood Gas Total Hemoglobin 12.50 L 13.5-17.5 g/dL Blood Gas Modality Room air FiO2 % 21.0 White Blood Count 4.4 4.4-10.8 10^3/uL Red Blood Count 3.63 L 4.5-5.90 10^6/uL Hemoglobin 11.8 L 13.5-17.5 g/dL Hematocrit 34.2 L 41.0-53.0 % Mean Corpuscular Volume 94.3 80.0-100.0 fL Mean Corpuscular Hemoglobin 32.5 H 28.0-32.0 pg Mean Corpuscular Hemoglobin Concent 34.5 32.0-36.0 g/dL Red Cell Distribution Width 14.1 11.8-14.3 % Platelet Count 134 L 140-450 10^3/uL Mean Platelet Volume 8.0 6.9-10.8 fL Neutrophils (%) (Auto) 54.7 37.0-80.0 % Lymphocytes (%) (Auto) 27.7 10.0-50.0 % Monocytes (%) (Auto) 5.7 0.0-12.0 % Eosinophils (%) (Auto) 11.2 H 0.0-7.0 % Basophils (%) (Auto) 0.7 0.0-2.0 % Neutrophils # (Auto) 2.4 1.6-8.6 10 ^3/uL Lymphocytes # (Auto) 1.2 0.4-5.4 10 ^3/uL Monocytes # (Auto) 0.3 0-1.3 10 ^3/uL Eosinophils # (Auto) 0.5 0-0.8 10 ^3/uL Basophils # (Auto) 0 0-0.2 10 ^3/uL Nucleated Red Blood Cells 0.0 % Sodium Level 136 136-145 mmol/L Potassium Level 3.9 3.5-5.1 mmol/L Chloride Level 99 98-107 mmol/L Carbon Dioxide Level 27 20-31 mmol/L Anion Gap 10 5-15 Blood Urea Nitrogen 17 9-23 mg/dL Creatinine 2.05 H 0.700-1.30 mg/dL Glomerular Filtration Rate Calc 33 >90 mL/min BUN/Creatinine Ratio 8.3 L 10.0-20.0 Serum Glucose 111 H 74-106 mg/dL Calcium Level 9.6 8.7-10.4 mg/dL Total Bilirubin 0.7 0.2-1.0 mg/dL Aspartate Amino Transferase (AST) 80 H 0-34 U/L Alanine Aminotransferase (ALT) 62 H 7-40 U/L Alkaline Phosphatase 58 46-116 U/L B-Type Natriuretic Peptide 12.84 0-100 pg/mL Total Protein 6.7 5.7-8.2 g/dL Albumin 4.6 3.2-4.8 g/dL Assessment Syncope, rule out cardiac etiology Sinus bradycardia Rule out structural heart disease Hypertension COPD Acute kidney injury Thyroid disease BPH History of tobacco use Plan/Recommendation We will continue with the following plan/recommendations (Dr. Ricardo): * Transthoracic echocardiogram to evaluate cardiac function * Bilateral carotid ultrasound: 50-69 % stenosis of right ICA * Consider Neck CTA-----patient has poor renal function at this time * Orthostatic vital signs * Hold AV jonh blocking agents * Close Cardiac surveillance. Notify cardiology team immediately for any ECG changes, pauses, or atrioventricular blocks * Check TSH Bradycardia likely secondary to beta-marquita use. We will recommend to hold AV jonh blocking agents at this time. Patient is on multiple BPH medications, consider orthostatic hypotension. Thank you for allowing us to care for this patient. Please call with any questions or concerns. Thank you for allowing us to care for this patient. Please call with any questions or concerns. Critical care time spent: 44 minutes This medical document was created using an electronic medical record system with voice recognition software and computerized dictation system. Although this document has been carefully reviewed, there might still be some phonetic and typographical errors. Occasional wrong-word or ``sound-alike substitutions may have occurred due to the inherent limitations of voice recognition software. These areas are purely typographical due to imperfections of the software programs and do not reflect any compromise in the patient's medical care. Please read the chart carefully and recognize, using context, where these substitutions have occurred. Plan discussed with: Patient NYHA Physical activity limitations: NA Date of Service: Apr 29, 2025 Billing Provider: CAROLINE MCKEON Cardiology Common Codes: [id number] INP/OBS CARE (High) Cardiology Consultation Codes: [id number] CONSULT <45MIN CAROLINE MCKEON Apr 29, 2025 17:04
[2025-04-29] MEDS ORDERED: TAMSULOSIN HYDROCHLORIDE 0.4 MG CAP PO SCH (18:00)
[2025-04-29 18:31] LABS: COVID19 ANTIGEN SOFIA FIA NEGATIVE (NEGATIVE); Rapid Influenza A Negative (Negative); Rapid Influenza B Negative (Negative)
[2025-04-29] MEDS: ENOXAPARIN SOD 40 MG/0.4 ML SYRINGE SC ONE (19:13)
[2025-04-29 19:43] LABS: LDL Cholesterol 53 mg/dL (< 100); Triglycerides 142 mg/dL (< 150)
[2025-04-29 19:45] LABS: Cholesterol 129 mg/dL (< 200); HDL Cholesterol 52 mg/dL (40-59)
[2025-04-29] MEDS: ALPRAZolam 0.5 MG TAB PO ONE (20:41)
[2025-04-30] VITALS (18 sets, daily range): BP systolic 99–152; BP diastolic 51–83; PULSE 58–76; RESP 14–19; TEMP 97.2–98.2; O2SAT 95–100
[2025-04-30] MEDS: PANTOPRAZOLE 40 MG TAB PO SCH (05:50)
[2025-04-30 06:05] LABS: Urine Bacteria None Seen /hpf (None Seen)
[2025-04-30 06:27] LABS: Urine Blood Negative /uL (Negative); Urine Clarity Clear (Clear); Urine Color Light-Yellow (Yellow); Urine Protein, UAD Negative (Negative); Urine Specific Gravity 1.012 (1.001-1.035); Urine Squamous Epithelial Cell FEW /hpf (<5); Urine Urobilinogen Normal (Negative); Urine WBC 1 /HPF (0-3); Urine pH 5.5 (5.0-9.0)
[2025-04-30 06:29] LABS: Sodium Urine 79 mmol/L (40-220)
[2025-04-30 06:35] LABS: Basophils # (auto) 0 10 ^3/uL (0-0.2); Basophils % (auto) 0.6 % (0.0-2.0); Eosinophils # (auto) 0.6 10 ^3/uL (0-0.8); Hematocrit 34.2 % (41.0-53.0); Hemoglobin 11.8 g/dL (13.5-17.5); Lymphocytes # (auto) 1.6 10 ^3/uL (0.4-5.4); Lymphocytes % (auto) 28.3 % (10.0-50.0); Mean Corpuscular Hemoglobin 32.6 pg (28.0-32.0); Mean Corpuscular Hgb Conc. 34.6 g/dL (32.0-36.0); Mean Corpuscular Volume 94.2 fL (80.0-100.0); Monocytes # (auto) 0.3 10 ^3/uL (0-1.3); Monocytes % (auto) 6.1 % (0.0-12.0); Neutrophils # (auto) 3.1 10 ^3/uL (1.6-8.6); Nucleated Red Blood Cells % 0.1 %; Platelet Count (auto) 136 10^3/uL (140-450); Red Blood Cells 3.63 10^6/uL (4.5-5.90); White Blood Cell 5.6 10^3/uL (4.4-10.8)
[2025-04-30 06:36] LABS: Creatinine, Urine 126.58 mg/dL (30.0-125.0); Protein, Urine < 6.0 mg/dL (1-14); Urine Protein/Creatinine Ratio 0.05
[2025-04-30 06:49] LABS: Anion Gap 11 (5-15); Carbon Dioxide 26 mmol/L (20-31); Chloride 99 mmol/L (98-107); Sodium 136 mmol/L (136-145)
[2025-04-30 06:55] LABS: BUN/Creatinine Ratio 6.7 (10.0-20.0); Blood Urea Nitrogen 12 mg/dL (9-23); Glucose 95 mg/dL (74-106)
[2025-04-30 07:00] LABS: Magnesium 1.3 mg/dL (1.6-2.6)
--- NOTE | 2025-04-30 08:18 | DVH ---
PROCEDURE: MRI MRA ANGIO OF NECK Indication: dizzineess, R carotid stenosis COMPARISON: None TECHNIQUE: MRA of the neck obtained using 3D [id number]. FINDINGS: Examination degraded by motion. The right common carotid artery demonstrates no high-grade stenosis. The cervical right ICA demonstrates no high-grade stenosis. The left common carotid artery demonstr ates no high-grade stenosis. The left cervical ICA demonstrates no high-grade stenosis. Left vertebr al artery dominant. Bilateral vertebral arteries demonstrate no high-grade stenoses. 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 Cervical degenerative disc disease with left paracentral disc protrusion in the lower cervical spine. Bilateral mastoid effusions. IMPRESSION: 1. Examination markedly degraded by motion. No definitive high-grade stenosis identified.Cervical deg enerative disc
[2025-04-30] MEDS: AZITHROMYCIN 500MG/ 250ML 250 ML IV SCH (09:43)
--- NOTE | 2025-04-30 12:29 | DVHPN2 ---
Consult Progress Note Subjective Patient reports: Feels better Review of Systems: CVS:Normal ([place] CP, Palpitations) Objective vital signs Vital Sign Date Time Temp Pulse Resp B/P (MAP) Pulse Ox O2 Delivery O2 Flow Rate FiO2 04/30/25 11:47 71 18 100 04/30/25 10:00 Nasal Cannula* 2 28 04/30/25 09:43 127/71 04/30/25 08:38 97.5 97.5 Total Intake and Output 04/29/25 04/29/25 04/30/25 15:00 23:00 07:00 Intake Total 430 ml Output Total 200 ml Balance 430 ml -200 ml medications Current Medications Medications Dose Ordered Sig/Rand Route Start Time Stop Time Status Last Admin Dose Admin Levothyroxine Sodium 88 mcg QAM@0600 PO 04/29/25 06:00 04/30/25 05:50 88 MCG Amlodipine Besylate 5 mg DAILY PO 04/29/25 10:00 04/30/25 09:43 5 MG Pantoprazole Sodium 40 mg DAILY@0600 PO 04/30/25 06:00 04/30/25 05:50 40 MG Albuterol 2.5 mg Q6HR NEB 04/29/25 12:00 04/30/25 11:36 2.5 MG Ipratropium [place] 0.5 mg Q6HR NEB 04/29/25 12:00 04/30/25 11:35 0.5 MG Azithromycin 250 ml @ 125 mls/hr DAILY IV 04/30/25 10:00 04/30/25 09:43 125 MLS/HR Enoxaparin Sodium 40 mg DAILY@1800 SC 04/30/25 18:00 laboratory and microbiology Laboratory Tests 04/30/25 06:12 Test 04/30/25 06:12 Range/Units Serum Glucose 95 74-106 mg/dL Problem List/Assessment/Plan Problem List/Assessment/Plan Assessment Syncope, rule out cardiac etiology Sinus bradycardia Rule out structural heart disease Hypertension COPD Acute kidney injury Thyroid disease BPH History of tobacco use Plan/Recommendation We will continue with the following plan/recommendations (Dr. Ricardo): * Follow-up echo * Bilateral carotid ultrasound: 50-69 % stenosis of right ICA * Consider Neck CTA-----patient has poor renal function at this time * Negative Orthostatic vital signs * Hold AV jonh blocking agents * Close Cardiac surveillance. Notify cardiology team immediately for any ECG changes, pauses, or atrioventricular blocks * Check TSH Bradycardia likely secondary to beta-marquita use. Continue to hold AV jonh blocking agents at this time. Heart rate improved, stable on telemetry review. Continue blood pressure control with amlodipine. Patient is on multiple BPH medications, negative orthostatics. Thank you for allowing us to care for this patient. Please call with any questions or concerns. This medical document was created using an electronic medical record system with voice recognition software and computerized dictation system. Although this document has been carefully reviewed, there might still be some phonetic and typographical errors. Occasional wrong-word or ``sound-alike substitutions may have occurred due to the inherent limitations of voice recognition software. These areas are purely typographical due to imperfections of the software programs and do not reflect any compromise in the patient's medical care. Please read the chart carefully and recognize, using context, where these substitutions have occurred. Thank you for allowing me to participate in the management of this patient. The treatment plan was discussed with and agreed upon by patient/family including requesting consultants and ordering of imaging/procedures. Plan discussed with: Patient Date of Service: Apr 30, 2025 Billing Provider: REBEL FLORENTINO Common Visit Codes: [id number] INP/OBS CARE(HIGH) REBEL FLORENTINO Apr 30, 2025 12:29
--- NOTE | 2025-04-30 15:41 | DVHPNRES ---
Progress Note Date Seen: Apr 30, 2025 Resident Creating Document: MIGUEL STEVENS RESIDENT Medical Necessity Reason Pt with a Central, PICC or Fol: No Subjective Review of Systems Patient seen and examined at bedside, MRI shows no obvious stenosis. Patient is feeling better today. Objective vital signs Vital Sign Date Time Temp Pulse Resp B/P (MAP) Pulse Ox O2 Delivery O2 Flow Rate FiO2 04/30/25 12:39 97.6 72 16 152/83 (106) 98 97.6 04/30/25 10:00 Nasal Cannula* 2 28 Total Intake and Output 04/29/25 04/29/25 04/30/25 15:00 23:00 07:00 Intake Total 430 ml Output Total 200 ml Balance 430 ml -200 ml medications Current Medications Medications Dose Ordered Sig/Rand Route Start Time Stop Time Status Last Admin Dose Admin Amlodipine Besylate 5 mg DAILY PO 04/29/25 10:00 04/30/25 09:43 5 MG Pantoprazole Sodium 40 mg DAILY@0600 PO 04/30/25 06:00 04/30/25 05:50 40 MG Albuterol 2.5 mg Q6HR NEB 04/29/25 12:00 04/30/25 11:36 2.5 MG Ipratropium [place] 0.5 mg Q6HR NEB 04/29/25 12:00 04/30/25 11:35 0.5 MG Azithromycin 250 ml @ 125 mls/hr DAILY IV 04/30/25 10:00 04/30/25 09:43 125 MLS/HR Enoxaparin Sodium 40 mg DAILY@1800 SC 04/30/25 18:00 Levothyroxine Sodium 100 mcg QAM@0600 PO 05/01/25 06:00 Levothyroxine Sodium 25 mcg QAM@0600 PO 05/01/25 06:00 Examination General: Well-built, afebrile, mucosae are moist Cardiovascular: Bradycardia but Regular S1 and S2. No murmurs, gallops or rubs. No JVD elevation. No pedal edema Respiratory: Normal B/L air entry on room air. Clear lung sounds on auscultation Abdomen: Soft, nontender, nondistended, normoactive bowel sounds, no rebound tenderness, no organomegaly, no masses Genitourinary: Deferred MSK/skin: Mobilizes 4 limbs. Skin is dry and. Bilateral lower extremity or cold, feeble pulses Neurological: No motor, no sensitive deficits, normal speech. Pupils are isocoric and reactive. Psych/Mental Status: A/Ox3 laboratory and microbiology Laboratory Tests 04/30/25 06:12 Test 04/30/25 06:12 Range/Units Serum Glucose 95 74-106 mg/dL Problem List/Assessment/Plan Problem List/Assessment/Plan Dizziness ? Symptomatic sinus bradycardia ? Polypharmacy ? BPPV Rule out cardiac cause Rule out neurological cause Rule out orthostatic hypotension - head CT unremarkable for acute intracranial pathology - carotid Doppler shows right-sided carotid stenosis - MR angio head and neck : shows no obvious stenosis. - EKG reviewed, shows sinus bradycardia - echocardiogram pending - IV fluids discontinued - given 1 dose of meclizine -cardiology consulted -orthostatic vitals pending Acute hypoxic respiratory failure secondary to COPD ? 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 Nonobstructing left renal stone measures 1.2 cm. -creatinine 2.05, GFR 33, enrichment teacher consulted -follow up with urine electrolytes Anemia, likely Normocytic Monitor Ruled out PAD -Rule extremity duplex unremarkable Hypertensive heart disease - on amlodipine 5 mg daily, had losartan due to MICHELLE Hypothyroidism - levothyroxine 88 mcg H/o Benign prostatic hyperplasia - holding tamsulosin and finasteride given dizziness Protonix 40 mg daily Lovenox 40 mg sc daily Plan discussed with patient in which all questions have been answered Goals of care discussed for 24 minutes, full code status Case discussed with with Gagan Plan discussed with: Patient My Orders My Orders Orders - MIGUEL STEVENS RESIDENT Procedure Category Date Status Time Levothyroxine Tablet PHA 05/01/25 In Process (Synthroid Tablet) 06:00 Levothyroxine Tablet PHA 05/01/25 In Process (Synthroid Tablet) 06:00 Basic Metabolic Panel LAB 05/01/25 Verified 04:00 Complete Blood Count LAB 05/01/25 Verified 04:00 Date of Service: Apr 30, 2025 Billing Provider: DANIELLE BELTRAN MD Common Visit Codes: [id number] INP/OBS CARE(HIGH) MIGUEL STEVENS RESIDENT Apr 30, 2025 15:41 DANIELLE BELTRAN MD Apr 30, 2025 22:13
--- NOTE | 2025-04-30 16:01 | DVHINCON2 ---
Date of service: Apr 30, 2025 Reason for Consultation Acute kidney injury History of Present Illness 79-year-old white male with past medical history of hypertension, COPD, hyperlipidemia, BPH, chronic kidney disease approximately stage III based on previous records who presents to the hospital after a near syncopal episode. Nephrology consulted due to elevated creatinine level. Of note after evaluation by Cardiology patient was noted to have bradycardia Allergies: Coded Allergies: NO KNOWN ALLERGIES (Unverified , 02/21/23) Home Meds Active Scripts Tamsulosin Hcl (Flomax) 0.4 Mg Cap, 1 CAP PO QPM, #60 CAP Prov:ESTEBAN DE LA PAZ MD 02/24/23 Reported Medications Losartan Potassium (Losartan Potassium) 50 Mg Tab, 1 TAB PO DAILY 04/29/25 Terazosin Hcl (Terazosin Hcl) 1 Mg Cap, 1 MG PO HS for 30 Days, MG 02/22/23 Metoprolol Tartrate (Metoprolol Tartrate) 25 Mg Tab, 25 MG PO BID for 30 Days, MG 02/22/23 Albuterol Sulfate (Albuterol Sulfate) 0.083 % Neb, 1 AER NEB Q4HP 02/22/23 Atorvastatin Calcium (ATORVASTATIN CALCIUM) 10 Mg Tab, 1 TAB PO DAILY 02/22/23 Albuterol Sulfate (Albuterol Sulfate Hfa) 108 Mcg/Act Aer, 2 PUFF INH Q4HP PRN for SHORTNESS OF BREATH 02/22/23 Current Medications Current Medications Medications (Trade) Dose Ordered Sig/Rand Route PRN Reason Start Time Stop Time Status Last Admin Tamsulosin HCl (Flomax) 0.4 mg QPM PO 04/29/25 18:00 04/29/25 10:48 DC Pantoprazole Sodium (Protonix Tablet) 40 mg DAILY@0600 PO 04/30/25 06:00 04/30/25 05:50 Azithromycin 250 ml @ 125 mls/hr DAILY IV 04/30/25 10:00 04/30/25 09:43 Enoxaparin Sodium (Lovenox) 40 mg DAILY@1800 SC 04/30/25 18:00 Levothyroxine Sodium (Synthroid Tablet) 100 mcg QAM@0600 PO 05/01/25 06:00 Levothyroxine Sodium (Synthroid Tablet) 25 mcg QAM@0600 PO 05/01/25 06:00 Family History: FH: kidney failure G8 SISTER FH: suicide G8 MOTHER H&P Exam Vital Signs/I&O Vital Sign Date Time Temp Pulse Resp B/P (MAP) Pulse Ox O2 Delivery O2 Flow Rate FiO2 04/30/25 12:39 97.6 72 16 152/83 (106) 98 97.6 04/30/25 10:00 Nasal Cannula* 2 28 Intake and Output 04/29/25 04/30/25 19:00 07:00 Intake Total 430 ml Output Total 200 ml Balance 430 ml -200 ml Intake Oral 430 ml Output Urine Total 200 ml # Bowel Movements 1 Physical Exam Elderly white male Not in overt distress Abdomen is soft No pitting edema Regular rhythm with bradycardia Labs/Diagnostic Data Labs/Diagnostic Data Laboratory Tests Test 04/30/25 06:12 04/30/25 06:00 04/29/25 17:42 04/29/25 04:52 Range/Units White Blood Count 5.6 # 4.4-10.8 10^3/uL Red Blood Count 3.63 L 4.5-5.90 10^6/uL Hemoglobin 11.8 L 13.5-17.5 g/dL Hematocrit 34.2 L 41.0-53.0 % Mean Corpuscular Volume 94.2 80.0-100.0 fL Mean Corpuscular Hemoglobin 32.6 H 28.0-32.0 pg Mean Corpuscular Hemoglobin Concent 34.6 32.0-36.0 g/dL Red Cell Distribution Width 14.0 11.8-14.3 % Platelet Count 136 L 140-450 10^3/uL Mean Platelet Volume 8.0 6.9-10.8 fL Neutrophils (%) (Auto) 55.0 37.0-80.0 % Lymphocytes (%) (Auto) 28.3 10.0-50.0 % Monocytes (%) (Auto) 6.1 0.0-12.0 % Eosinophils (%) (Auto) 10.0 H 0.0-7.0 % Basophils (%) (Auto) 0.6 0.0-2.0 % Neutrophils # (Auto) 3.1 1.6-8.6 10 ^3/uL Lymphocytes # (Auto) 1.6 0.4-5.4 10 ^3/uL Monocytes # (Auto) 0.3 0-1.3 10 ^3/uL Eosinophils # (Auto) 0.6 0-0.8 10 ^3/uL Basophils # (Auto) 0 0-0.2 10 ^3/uL Nucleated Red Blood Cells 0.1 % Sodium Level 136 136-145 mmol/L Potassium Level 4.0 3.5-5.1 mmol/L Chloride Level 99 98-107 mmol/L Carbon Dioxide Level 26 20-31 mmol/L Anion Gap 11 5-15 Blood Urea Nitrogen 12 9-23 mg/dL Creatinine 1.79 H 0.700-1.30 mg/dL Glomerular Filtration Rate Calc 38 >90 mL/min BUN/Creatinine Ratio 6.7 L 10.0-20.0 Serum Glucose 95 74-106 mg/dL Calcium Level 9.0 8.7-10.4 mg/dL Magnesium Level 1.3 L 1.6-2.6 mg/dL Urine Color Light-yellow Yellow Urine Clarity Clear Clear Urine pH 5.5 5.0-9.0 Urine Specific [place] 1.012 1.001-1.035 Urine Protein Negative Negative Urine Ketones Negative Negative Urine Blood Negative Negative /uL Urine Nitrite Negative Negative Urine Bilirubin Negative Negative Urine Urobilinogen Normal Negative mg/dL Urine Leukocyte Esterase Negative Negative /uL Urine RBC 1 0 - 3 /hpf Urine Microscopic WBC 1 0-3 /HPF Urine Squamous Epithelial Cells Few <5 /hpf Urine Bacteria None seen None Seen /hpf Urine Creatinine 126.58 H 30.0-125.0 mg/dL Urine Protein/Creatinine Ratio 0.05 Urine Sodium 79 40-220 mmol/L Urine Glucose Normal Normal mg/dL Urine Total Protein < 6.0 1-14 mg/dL Influenza Type A Antigen Negative Negative Influenza Type B Antigen Negative Negative SARS-CoV-2 Antigen (Rapid) Negative NEGATIVE Troponin I High Sensitivity 5 </=54 ng/L Triglycerides Level 142 < 150 mg/dL Cholesterol Level 129 < 200 mg/dL LDL Cholesterol 53 < 100 mg/dL HDL Cholesterol 52 40-59 mg/dL Thyroid Stimulating Hormone (TSH) 116.78 H 0.55-4.78 uIU/mL Test 04/29/25 04:12 04/29/25 02:49 04/29/25 01:41 Range/Units Blood Gas Specimen Type Arterial Blood Gas Sample Site Left radial Blood Gas Patient Temperature 37.0 Arterial Blood Date Drawn [id number] Arterial Blood pH 7.404 7.350-7.450 Arterial Blood Partial Pressure CO2 40.4 35.0-48.0 mmHg Arterial Blood Partial Pressure O2 67.6 L 83.0-108.0 mmHg Arterial Blood HCO3 24.7 21.0-28.0 mmol/L Arterial Blood Oxygen Saturation 91.9 L 94.0-98.0 % Arterial Blood Base Excess 0.0 -2.0-3.0 mmol/L Arterial Blood Oxyhemoglobin 90.9 L 94.0-98.0 % Arterial Blood Carboxyhemoglobin 0.6 0.5-1.5 % Arterial Blood Methemoglobin 0.5 0.0-1.5 % Ollie Test Yes Blood Gas Total Hemoglobin 12.50 L 13.5-17.5 g/dL Blood Gas Modality Room air FiO2 % 21.0 Troponin I High Sensitivity 5 4 </=54 ng/L White Blood Count 4.4 4.4-10.8 10^3/uL Red Blood Count 3.63 L 4.5-5.90 10^6/uL Hemoglobin 11.8 L 13.5-17.5 g/dL Hematocrit 34.2 L 41.0-53.0 % Mean Corpuscular Volume 94.3 80.0-100.0 fL Mean Corpuscular Hemoglobin 32.5 H 28.0-32.0 pg Mean Corpuscular Hemoglobin Concent 34.5 32.0-36.0 g/dL Red Cell Distribution Width 14.1 11.8-14.3 % Platelet Count 134 L 140-450 10^3/uL Mean Platelet Volume 8.0 6.9-10.8 fL Neutrophils (%) (Auto) 54.7 37.0-80.0 % Lymphocytes (%) (Auto) 27.7 10.0-50.0 % Monocytes (%) (Auto) 5.7 0.0-12.0 % Eosinophils (%) (Auto) 11.2 H 0.0-7.0 % Basophils (%) (Auto) 0.7 0.0-2.0 % Neutrophils # (Auto) 2.4 1.6-8.6 10 ^3/uL Lymphocytes # (Auto) 1.2 0.4-5.4 10 ^3/uL Monocytes # (Auto) 0.3 0-1.3 10 ^3/uL Eosinophils # (Auto) 0.5 0-0.8 10 ^3/uL Basophils # (Auto) 0 0-0.2 10 ^3/uL Nucleated Red Blood Cells 0.0 % Sodium Level 136 136-145 mmol/L Potassium Level 3.9 3.5-5.1 mmol/L Chloride Level 99 98-107 mmol/L Carbon Dioxide Level 27 20-31 mmol/L Anion Gap 10 5-15 Blood Urea Nitrogen 17 9-23 mg/dL Creatinine 2.05 H 0.700-1.30 mg/dL Glomerular Filtration Rate Calc 33 >90 mL/min BUN/Creatinine Ratio 8.3 L 10.0-20.0 Serum Glucose 111 H 74-106 mg/dL Hemoglobin A1c 5.7 <5.7 % A1C Calcium Level 9.6 8.7-10.4 mg/dL Total Bilirubin 0.7 0.2-1.0 mg/dL Aspartate Amino Transferase (AST) 80 H 0-34 U/L Alanine Aminotransferase (ALT) 62 H 7-40 U/L Alkaline Phosphatase 58 46-116 U/L B-Type Natriuretic Peptide 12.84 0-100 pg/mL Total Protein 6.7 5.7-8.2 g/dL Albumin 4.6 3.2-4.8 g/dL Assessment 79-year-old male with past medical history of chronic kidney disease stage 3, hypertension, COPD, BPH presents to the hospital after a near syncopal episode was diagnosed with sinus bradycardia. Acute kidney injury hemodynamically mediated in the setting of hemodynamic change Chronic kidney disease stage 3a? sinus bradycardia Right carotid stenosis Hypertension BPH Avoid hypotension Cardiac workup Resume Flomax Ultrasound of the kidney shows nonobstructing left kidney stone Continue with blood pressure control rest of care as per primary medical team Plan discussed with: Patient PAUL VIRAMONTES MD Apr 30, 2025 16:01
--- NOTE | 2025-04-30 16:17 | DVHSR ---
APPROVED REPORT EXAM: Two-dimensional and M-mode echocardiogram with Doppler and color Doppler. Blood Pressure: 143/68 mmHg INDICATION Dizziness and Vertigo RISK FACTORS Obesity: Height: 5'9, DIMENSIONS LVDd4.4 (3.8-5.7cm)LA (2D)3.9 (1.9-4.0cm)Aortic Root3.8 (2.0-3.7cm) LVDs3.0 (2.5-4.0cm)LA (MM) (1.9-4.0cm)Aortic Cusp Exc1.7 (1.5-2.0cm) EF (%) 55.0 (55-70%)Rt. Atrium (1.9-4.0cm)Asc. Aorta cm IVSd1.2 (0.7-1.1cm)RV (D) (1.8-2.4cm) PWd1.0 (0.7-1.1cm) Mitral Valve MitralMitral Stenosis E wave0.68m/sMV Mean GR.mmHg A wave0.64m/sMV Peak GR.50mmHg E/A ratio1.12D MVAcm2 DECEL [id number] 1/2 [place] Aortic Valve Aortic ValveAortic Stenosis V10.91m/Emani Mean GR.3mmHg V21.18m/Emani Peak GR.6mmHg LVOT Diameter1.9 (1.8-2.4cm)Doppler AVA2.19cm2 Pulmonic Valve V21.74m/s Tricuspid Valve TR Velocity2.52m/s [id number] Other Information Technically limited study due to patient position.body habitus. Conclusion Technically good study. Sinus rhythm. Aortic root enlargement. Va;ves are normal. LVEF is normal at 60% with normal RV function. Dopplers unremarkable. No pericardial effusion masses or vegetations.
[2025-04-30] MEDS: ENOXAPARIN SOD 40 MG/0.4 ML SYRINGE SC SCH (17:49)
[2025-05-01] VITALS (14 sets, daily range): BP systolic 123–153; BP diastolic 78–96; PULSE 65–100; RESP 12–20; TEMP 97.4–98.4; O2SAT 95–100
[2025-05-01] MEDS: LORazepam 0.5 MG TAB PO PRN (01:44)
[2025-05-01 04:42] LABS: Basophils # (auto) 0 10 ^3/uL (0-0.2); Basophils % (auto) 0.5 % (0.0-2.0); Eosinophils # (auto) 0.6 10 ^3/uL (0-0.8); Eosinophils % (auto) 11.2 % (0.0-7.0); Hematocrit 35.9 % (41.0-53.0); Hemoglobin 12.4 g/dL (13.5-17.5); Lymphocytes # (auto) 1.1 10 ^3/uL (0.4-5.4); Lymphocytes % (auto) 20.6 % (10.0-50.0); Mean Corpuscular Hemoglobin 32.4 pg (28.0-32.0); Mean Corpuscular Hgb Conc. 34.5 g/dL (32.0-36.0); Mean Corpuscular Volume 94.1 fL (80.0-100.0); Monocytes # (auto) 0.4 10 ^3/uL (0-1.3); Monocytes % (auto) 6.8 % (0.0-12.0); Neutrophils # (auto) 3.3 10 ^3/uL (1.6-8.6); Neutrophils % (auto) 60.9 % (37.0-80.0); Nucleated Red Blood Cells % 0.1 %; Platelet Count (auto) 149 10^3/uL (140-450); Red Blood Cells 3.82 10^6/uL (4.5-5.90); Red Cell Distribution Width 14.6 % (11.8-14.3); White Blood Cell 5.4 10^3/uL (4.4-10.8)
[2025-05-01 04:54] LABS: Chloride 99 mmol/L (98-107); Potassium 4.3 mmol/L (3.5-5.1); Sodium 138 mmol/L (136-145)
[2025-05-01 04:55] LABS: Anion Gap 10 (5-15); Carbon Dioxide 29 mmol/L (20-31)
[2025-05-01 04:56] LABS: Calcium 9.8 mg/dL (8.7-10.4)
[2025-05-01 05:00] LABS: Glucose 89 mg/dL (74-106)
[2025-05-01 05:01] LABS: BUN/Creatinine Ratio 7.7 (10.0-20.0); Blood Urea Nitrogen 13 mg/dL (9-23)
[2025-05-01] MEDS: LEVOTHYROXINE SODIUM 100 MCG TAB PO SCH (06:03)
[2025-05-01] MEDS: LEVOTHYROXINE SODIUM 25 MCG TAB PO SCH (06:03)
--- NOTE | 2025-05-01 10:05 | DVHPN2 ---
Consult Progress Note Objective vital signs Vital Sign Date Time Temp Pulse Resp B/P (MAP) Pulse Ox O2 Delivery O2 Flow Rate FiO2 05/01/25 09:38 151/80 05/01/25 08:52 97.4 84 18 98 97.4 05/01/25 08:23 Room Air* 2 N/A Nasal Cannula* Total Intake and Output 04/30/25 04/30/25 05/01/25 15:00 23:00 07:00 Intake Total 250 ml 800 ml 400 ml Output Total 880 ml Balance 250 ml 800 ml -480 ml medications Current Medications Medications Dose Ordered Sig/Rand Route Start Time Stop Time Status Last Admin Dose Admin Amlodipine Besylate 5 mg DAILY PO 04/29/25 10:00 05/01/25 09:38 5 MG Pantoprazole Sodium 40 mg DAILY@0600 PO 04/30/25 06:00 05/01/25 06:03 40 MG Albuterol 2.5 mg Q6HR NEB 04/29/25 12:00 05/01/25 06:26 2.5 MG Ipratropium [place] 0.5 mg Q6HR NEB 04/29/25 12:00 05/01/25 06:26 0.5 MG Azithromycin 250 ml @ 125 mls/hr DAILY IV 04/30/25 10:00 05/01/25 09:38 125 MLS/HR Enoxaparin Sodium 40 mg DAILY@1800 SC 04/30/25 18:00 04/30/25 17:49 40 MG Levothyroxine Sodium 100 mcg QAM@0600 PO 05/01/25 06:00 05/01/25 06:03 100 MCG Levothyroxine Sodium 25 mcg QAM@0600 PO 05/01/25 06:00 05/01/25 06:03 25 MCG Lorazepam 0.5 mg Q8HP PRN PO 05/01/25 01:30 05/01/25 01:44 0.5 MG laboratory and microbiology Laboratory Tests 05/01/25 04:13 Test 05/01/25 04:13 Range/Units Serum Glucose 89 74-106 mg/dL Problem List/Assessment/Plan Problem List/Assessment/Plan Assessment Syncope, rule out cardiac etiology Sinus bradycardia Rule out structural heart disease Hypertension COPD Acute kidney injury Thyroid disease BPH History of tobacco use Plan/Recommendation We will continue with the following plan/recommendations (Dr. Ricardo): * Follow-up echo with normal EF of 60%, normal RV function. Aortic root enlargement. No significant valvular structural abnormalities noted. * Bilateral carotid ultrasound: 50-69 % stenosis of right ICA * Consider Neck CTA-----patient has poor renal function at this time * Negative Orthostatic vital signs * Hold AV jonh blocking agents * Close Cardiac surveillance. Notify cardiology team immediately for any ECG changes, pauses, or atrioventricular blocks * Check TSH Bradycardia likely secondary to beta-marquita use. Continue to hold AV jonh blocking agents at this time may initiate a lower dose if tolerated. Heart stable on telemetry review. Continue blood pressure control with amlodipine. Patient is on multiple BPH medications, negative orthostatics. Thank you for allowing us to care for this patient. Please call with any questions or concerns. This medical document was created using an electronic medical record system with voice recognition software and computerized dictation system. Although this document has been carefully reviewed, there might still be some phonetic and typographical errors. Occasional wrong-word or ``sound-alike substitutions may have occurred due to the inherent limitations of voice recognition software. These areas are purely typographical due to imperfections of the software programs and do not reflect any compromise in the patient's medical care. Please read the chart carefully and recognize, using context, where these substitutions have occurred. Thank you for allowing me to participate in the management of this patient. The treatment plan was discussed with and agreed upon by patient/family including requesting consultants and ordering of imaging/procedures. Plan discussed with: Patient Date of Service: May 01, 2025 Billing Provider: REBEL FLORENTINO Common Visit Codes: [id number] INP/OBS CARE(HIGH) REBEL FLORENTINO May 01, 2025 10:05
[2025-05-01] MEDS: ACETAMINOPHEN 325 MG TAB PO PRN (12:14)
[2025-05-01] MEDS ORDERED: FER325T PO (12:35)
[2025-05-01] MEDS ORDERED: LEVO-849 PO (12:35)
--- NOTE | 2025-05-01 12:39 | DVHDSRES ---
Discharge Summary Date of Admission Resident Creating Document: LUIS F WOODSON RESIDENT Apr 29, 2025 at 05:13 Date of Discharge: May 01, 2025 Labs/Diagnostic Data: Laboratory Results Test 05/01/25 04:13 05/01/25 02:44 04/30/25 06:12 04/30/25 06:00 White Blood Count 5.4 10^3/uL (4.4-10.8) Red Blood Count 3.82 10^6/uL (4.5-5.90) Hemoglobin 12.4 g/dL (13.5-17.5) Hematocrit 35.9 % (41.0-53.0) Mean Corpuscular Volume 94.1 fL (80.0-100.0) Mean Corpuscular Hemoglobin 32.4 pg (28.0-32.0) Mean Corpuscular Hemoglobin Concent 34.5 g/dL (32.0-36.0) Red Cell Distribution Width 14.6 % (11.8-14.3) Platelet Count 149 10^3/uL (140-450) Mean Platelet Volume 7.9 fL (6.9-10.8) Neutrophils (%) (Auto) 60.9 % (37.0-80.0) Lymphocytes (%) (Auto) 20.6 % (10.0-50.0) Monocytes (%) (Auto) 6.8 % (0.0-12.0) Eosinophils (%) (Auto) 11.2 % (0.0-7.0) Basophils (%) (Auto) 0.5 % (0.0-2.0) Neutrophils # (Auto) 3.3 10 ^3/uL (1.6-8.6) Lymphocytes # (Auto) 1.1 10 ^3/uL (0.4-5.4) Monocytes # (Auto) 0.4 10 ^3/uL (0-1.3) Eosinophils # (Auto) 0.6 10 ^3/uL (0-0.8) Basophils # (Auto) 0 10 ^3/uL (0-0.2) Nucleated Red Blood Cells 0.1 % Sodium Level 138 mmol/L (136-145) Potassium Level 4.3 mmol/L (3.5-5.1) Chloride Level 99 mmol/L (98-107) Carbon Dioxide Level 29 mmol/L (20-31) Anion Gap 10 (5-15) Blood Urea Nitrogen 13 mg/dL (9-23) Creatinine 1.69 mg/dL (0.700-1.30) Glomerular Filtration Rate Calc 41 mL/min (>90) BUN/Creatinine Ratio 7.7 (10.0-20.0) Serum Glucose 89 mg/dL (74-106) Calcium Level 9.8 mg/dL (8.7-10.4) Ferritin 55.3 ng/mL (22-322) Thyroid Stimulating Hormone (TSH) 99.19 uIU/mL (0.55-4.78) POC Glucose 89 mg/dl (70-106) Magnesium Level 1.3 mg/dL (1.6-2.6) Urine Color Light-yellow (Yellow) Urine Clarity Clear (Clear) Urine pH 5.5 (5.0-9.0) Urine Specific [place] 1.012 (1.001-1.035) Urine Protein Negative (Negative) Urine Ketones Negative (Negative) Urine Blood Negative /uL (Negative) Urine Nitrite Negative (Negative) Urine Bilirubin Negative (Negative) Urine Urobilinogen Normal mg/dL (Negative) Urine Leukocyte Esterase Negative /uL (Negative) Urine RBC 1 /hpf (0 - 3) Urine Microscopic WBC 1 /HPF (0-3) Urine Squamous Epithelial Cells Few /hpf (<5) Urine Bacteria None seen /hpf (None Seen) Urine Creatinine 126.58 mg/dL (30.0-125.0) Urine Protein/Creatinine Ratio 0.05 Urine Sodium 79 mmol/L (40-220) Urine Glucose Normal mg/dL (Normal) Urine Total Protein < 6.0 mg/dL (1-14) Test 04/29/25 17:42 04/29/25 04:52 04/29/25 04:12 04/29/25 01:41 Influenza Type A Antigen Negative (Negative) Influenza Type B Antigen Negative (Negative) SARS-CoV-2 Antigen (Rapid) Negative (NEGATIVE) Troponin I High Sensitivity 5 ng/L (</=54) Triglycerides Level 142 mg/dL (< 150) Cholesterol Level 129 mg/dL (< 200) LDL Cholesterol 53 mg/dL (< 100) HDL Cholesterol 52 mg/dL (40-59) Blood Gas Specimen Type Arterial Blood Gas Sample Site Left radial Blood Gas Patient Temperature 37.0 Arterial Blood Date Drawn [id number] Arterial Blood pH 7.404 (7.350-7.450) Arterial Blood Partial Pressure CO2 40.4 mmHg (35.0-48.0) Arterial Blood Partial Pressure O2 67.6 mmHg (83.0-108.0) Arterial Blood HCO3 24.7 mmol/L (21.0-28.0) Arterial Blood Oxygen Saturation 91.9 % (94.0-98.0) Arterial Blood Base Excess 0.0 mmol/L (-2.0-3.0) Arterial Blood Oxyhemoglobin 90.9 % (94.0-98.0) Arterial Blood Carboxyhemoglobin 0.6 % (0.5-1.5) Arterial Blood Methemoglobin 0.5 % (0.0-1.5) Ollie Test Yes Blood Gas Total Hemoglobin 12.50 g/dL (13.5-17.5) Blood Gas Modality Room air FiO2 % 21.0 Hemoglobin A1c 5.7 % A1C (<5.7) Total Bilirubin 0.7 mg/dL (0.2-1.0) Aspartate Amino Transferase (AST) 80 U/L (0-34) Alanine Aminotransferase (ALT) 62 U/L (7-40) Alkaline Phosphatase 58 U/L (46-116) B-Type Natriuretic Peptide 12.84 pg/mL (0-100) Total Protein 6.7 g/dL (5.7-8.2) Albumin 4.6 g/dL (3.2-4.8) Other Laboratory Tests 05/01/25 04:13 Brief Hx & Hospital Course: Patient is a 79-year-old male with a past medical history of COPD, hypertension, BPH, hypothyroidism presented to the ED with a chief complaint of dizziness. Patient reports that since the last 2 years he has been having episodes of dizziness where he would feel the sensation of spinning held was worse when he tries to get up from a lying or sitting position to standing. Patient reported that those episodes were intermittent and he would feel fine after a while but this time yesterday night episode of dizziness, severe, associated with nausea following which he was brought to the hospital by his for further evaluation. Patient denied any blurred vision, headache, no episode of loss of consciousness. Patient has a history of COPD with functional class 3 shortness of the breath and is following up with the primary care provider, has inhalers Spiriva which he uses on and off and albuterol rescue inhaler. Patient denied any chest pain, palpitations during the episode of dizziness. Past medical history: COPD, hypertension, BPH Past surgical history: None Social history: Patient is an ex-smoker quit 4 years ago, denied current smoking, alcohol, drug use Home medications: As per the records patient is taking losartan 50 mg, terazosin 1 mg, tamsulosin 0.4 mg, med succinate 25 mg daily, finasteride 5 mg, levothyroxine 88 mcg PCP: richardson During the hospitalization, head CT unremarkable for acute intracranial pathology.carotid Doppler shows right-sided carotid stenosis therefore MR angio neck performed which was unremarkable, no significant stenosis. EKG reviewed, showed sinus bradycardia. Patient was taking metoprolol, tamsulosin and terazosin which were kept on hold during the hospital stay. Orthostatic vitals were negative, Cardiology was consulted, echocardiogram was completed which showed 60, normal RV function, no pericardial masses or vegetation. Patient's bradycardia and dizziness started to improve. Patient also required oxygen supplementation 2 L NC. Nebulized treatments were continued given history of COPD and IV azithromycin was given. Patient had MICHELLE, superimposed on CKD, FENA was 0.8 and patient received IV fluids, kidney ultrasound showed Increased echogenicity of bilateral kidneys may represent underlying chronic medical renal disease. Nonobstructing left renal stone measures 1.2 cm. Makeup Instructor recommended continuing tamsulosin. Peripheral arterial disease were ruled out. Patient's amlodipine 5 mg daily was continued during the hospital stay, losartan was held given MICHELLE. Creatinine trended down to 1.69. Patient's TSH was more than 100, patient ran out of levothyroxine at home. levothyroxine was increased to 125 mcg daily. 05/01-patient is hemodynamically stable, reports no acute distress therefore he has been discharged home with the recommendations to stop metoprolol and terazosin. Continue tamsulosin. Continue levothyroxine 125 mcg q.a.m.. Resume home medications. Discharge planning was completed with patient, patient's over the phone. Patient and patient's agreed for discharge. Operations or Procedures PROCEDURE: MRI MRA ANGIO OF NECK Indication: dizzineess, R carotid stenosis COMPARISON: None TECHNIQUE: MRA of the neck obtained using 3D [id number]. FINDINGS: Examination degraded by motion. The right common carotid artery demonstrates no high-grade stenosis. The cervical right ICA demonstrates no high-grade stenosis. The left common carotid artery demonstrates no high-grade stenosis. The left cervical ICA demonstrates no high-grade stenosis. Left vertebral artery dominant. Bilateral vertebral arteries demonstrate no high-grade stenoses. 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 Cervical degenerative disc disease with left paracentral disc protrusion in the lower cervical spine. Bilateral mastoid effusions. IMPRESSION: 1. Examination markedly degraded by motion. No definitive high-grade stenosis identified.Cervical degenerative disc ATED BY: REEMA FISHER MD DICTATED DATE/TIME: 04/30/25815 SIGNED BY: REEMA FISHER MD SIGNED DATE/TIME: 04/30/25815 CC: ORDERING PHYSICIAN: LUIS F WOODSON RESIDENT PROCEDURE(s): KIDUS - KIDNEY REASON: ?r/o nephrolithiasis ORDER NUMBER(s): [id number], ACCESSION NUMBER(s): [id number] INDICATION: nephrolithiasis. TECHNIQUE: Multiple real-time sonographic images of the kidneys and bladder were obtained. COMPARISON: None FINDINGS: RIGHT kidney measures 9.1 cm in length. Increased echogenicity. No hydronephrosis. LEFT kidney measures 11.1 cm in length. Increased echogenicity. Left renal cyst measures 1.6 cm. Nonobstructing stone in the left kidney measures 1.2 cm. No hydronephrosis. No large intraluminal masses are seen in the bladder. IMPRESSION: Increased echogenicity of bilateral kidneys may represent underlying chronic medical renal disease. Nonobstructing left renal stone measures 1.2 cm. ATED BY: MARK CHEEMA MD DICTATED DATE/TIME: 04/29/25 1203 SIGNED BY: MARK CHEEMA MD SIGNED DATE/TIME: 04/29/25 120 CC: Conclusion Technically good study. Sinus rhythm. Aortic root enlargement. Va;ves are normal. LVEF is normal at 60% with normal RV function. Dopplers unremarkable. No pericardial effusion masses or vegetations. SIGNED BY: CHRISTINA FLORES Sr., MD SIGNED DATE/TIME: 04/30/25 1538 Condition at Discharge: Stable Final Diagnosis/Problems List Dizziness secondary to polypharmacy/beta marquita induced Acute hypoxic respiratory failure secondary to COPD Ruled out orthostatic hypotension ? Chronic respiratory failure Bradycardia secondary to metoprolol Likely restless leg syndrome MICHELLE, superimposed on CKD stage 3 Nonobstructing left renal stone 1.2 cm Ruled out peripheral arterial disease Hypertension Hypothyroidism Benign prostatic hyperplasia Discharge Disposition: Home Discharge Instruct/Medications Diet: Renal Activity: Light activity Follow Up/Referral: Follow up with primary care physician within 7 days Follow up with the dc clinic within 7 days Medications: Discontinue metoprolol tablet Discontinue terazosin tablet Continue tamsulosin 0.4 mg daily Continue levothyroxine 125 mcg daily ferrous sulfate 325 mg p.o. Friday/Friday/Friday for restless leg syndrome Discharge Statement: "Patient was advised to return to the ER or call 911 if any headaches, dizziness, shortness of breath, chest pain, abdominal pain, bleeding, fevers, or worsening of medical condition. Patient was counseled about treatment plan, medications, possible side effects, patientverbalized understanding. All questions were answered to the best of my ability. This discharge took greater then 30 minutes in planning, reviewing documentation, counseling the patient, and discussing with other team members." ASSESSMENT ASSESSMENT Assessment Dizziness secondary to polypharmacy/beta marquita induced Bradycardia secondary to metoprolol Likely restless leg syndrome LUIS F WOODSON RESIDENT May 01, 2025 12:39
[2025-05-02 10:41] LABS: Free T4 (Free Thyroxine) 0.31 ng/dL (0.89-1.76)
[2025-05-02 10:42] LABS: T3 Total 0.46 ng/mL (0.60-1.81)
--- NOTE | 2025-05-02 11:26 | DVH ---
PROCEDURE: MRI MRA ANGIO HEAD BRAIN INDICATION: dizzineess, R carotid stenosis Exam Date: 04/30/2025 07:55 AM COMPARISON: None TECHNIQUE: MRA head without intravenous contrast. 3D image postprocessing was performed on a dedicated workstation and images were used for interpretat ion and reporting. FINDINGS: MRA head: Limited by motion. There is preserved flow within the bilateral distal internal carotid arteries. There is preserved lo w within the anterior and middle cerebral arteries. Dominant left posterior communicating artery. Th ere is preserved flow within the vertebral arteries, basilar artery, cerebellar arteries and posterio r cerebral arteries. There is no evidence of hemodynamically significant intracranial stenosis, prox imal occlusion or aneurysm. No abnormal venous signal is seen. IMPRESSION: 1. Limited by motion. No evidence of hemodynamically significant intracranial stenosis, proximal occl usion or aneurysm. HS:Y
== END 2025-05-01 14:25 | disposition home or self-care (01) | DRG 308 ==
LOC: ER 01:20 → EDBD 01:20 → OVERFLOW 05:13 → TELE-WESTW 06:45
PROVIDERS: ADMIT Internal Medicine Geriatric Medicine; ATTEND Emergency Medicine
DX: R00.1 Bradycardia, unspecified (principal); J96.01 Acute respiratory failure with hypoxia; N17.9 Acute kidney failure, unspecified; I65.21 Occlusion and stenosis of right carotid artery; I12.9 Hypertensive chronic kidney disease with stage 1 through stage 4 chronic kidney disease, or unspecified chronic kidney disease; N18.30 Chronic kidney disease, stage 3 unspecified; J44.9 Chronic obstructive pulmonary disease, unspecified; E66.9 Obesity, unspecified; D64.9 Anemia, unspecified; Z20.822 Contact with and (suspected) exposure to COVID-19; E03.9 Hypothyroidism, unspecified; G25.81 Restless legs syndrome; E07.9 Disorder of thyroid, unspecified; N40.0 Benign prostatic hyperplasia without lower urinary tract symptoms; T44.7X5A Adverse effect of beta-adrenoreceptor antagonists, initial encounter; N20.0 Calculus of kidney; E78.5 Hyperlipidemia, unspecified; Z68.28 Body mass index [BMI] 28.0-28.9, adult; Z87.891 Personal history of nicotine dependence; Y92.89 Other specified places as the place of occurrence of the external cause
CPT/HCPCS: 36415; 36600; 70450; 70545; 70547; 71045; 76775; 80048; 80053; 80061; 81001; 82570; 82728; 82805; 82962; 83036; 83735; 83880; 84156; 84300; 84439; 84443; 84480; 84484; 85025; 87081; 87426; 87804; 93005; 93306; 93886; 93925; 94640; 96365; 96372; G0378